=== PATIENT | male | born 1960 | race Hispanic/Latino ===

== ENCOUNTER 2018-07-18 00:27 | Emergency (ER) | payer MEDICAID ==
[2018-07-18 00:37] VITALS: BP 158/99
[2018-07-18] MEDS ORDERED: ULTRAM PO ONE (03:41)
--- NOTE | 2018-07-18 04:51 | Emergency Department Report ---
ED General Adult HPI - General Chief complaint: Extremity Injury, Lower Stated complaint: INFECTION IN BOTH LEGS Time Seen by Provider: 07/18/18 03:41 Source: patient Mode of arrival: Ambulatory Limitations: No Limitations - History of Present Illness Initial comments: Patient is a 58-year-old white male who presents for bilateral O [place] A pain states he had a soreness right leg raise Grasser became infected bilateral lower extremity pain is chronic or 5 years there's no edema no pitting edema no numbness or tingling patient is able to baseline without gait disturbance there is no drainage Onset/Timin -: days(s) Radiation: extremity Severity scale (0 -10): 7 Quality: aching, other (itching ) Consistency: constant Improves with: rest Worsens with: movement, other (prolonged standing walking ) Associated Symptoms: denies other symptoms Treatments Prior to Arrival: none - Related Data Previous Rx's Medication Instructions Recorded Last Taken Type Ibuprofen [Motrin 800 MG tab] 800 mg PO Q8HR PRN #30 tablet 07/18/18 Unknown Rx cephALEXin [Keflex] 500 mg PO Q8HR 10 Days #30 cap 07/18/18 Unknown Rx Allergies Allergy/AdvReac Type Severity Reaction Status Date / Time No Known Allergies Allergy Unverified 07/18/18 00:30 ED Review of Systems ROS: Stated complaint: INFECTION IN BOTH LEGS Other details as noted in HPI Constitutional: denies: chills, fever Eyes: denies: eye pain, eye discharge, vision change ENT: denies: ear pain, throat pain Respiratory: denies: cough, shortness of breath, wheezing Cardiovascular: denies: chest pain, palpitations Endocrine: no symptoms reported Gastrointestinal: denies: abdominal pain, nausea, diarrhea Genitourinary: denies: urgency, dysuria Musculoskeletal: denies: back pain, joint swelling, arthralgia Skin: pruritus, other (erythema Right LE ). denies: rash, lesions Neurological: denies: headache, weakness, paresthesias Psychiatric: denies: anxiety, depression Hematological/Lymphatic: denies: easy bleeding, easy bruising ED Past Medical Hx - Past Medical History Previous Medical History?: Yes Hx Hypertension: Yes - Surgical History Past Surgical History?: Yes Additional Surgical History: Left leg with titanium rods, plates and screws from Forklift accident, Hernia - Social History Smoking Status: Former Smoker Substance Use Type: None - Medications Home Medications: Home Medications Medication Instructions Recorded Confirmed Last Taken Type Ibuprofen [Motrin 800 MG tab] 800 mg PO Q8HR PRN #30 tablet 07/18/18 Unknown Rx cephALEXin [Keflex] 500 mg PO Q8HR 10 Days #30 cap 07/18/18 Unknown Rx ED Physical Exam - General Limitations: No Limitations General appearance: alert, in no apparent distress - Head Head exam: Present: atraumatic, normocephalic - Eye Eye exam: Present: normal appearance, PERRL, EOMI Pupils: Present: normal accommodation - ENT ENT exam: Present: mucous membranes moist - Neck Neck exam: Present: normal inspection - Respiratory Respiratory exam: Present: normal lung sounds bilaterally. Absent: respiratory distress, wheezes, stridor, chest wall tenderness - Cardiovascular Cardiovascular Exam: Present: regular rate, normal rhythm, normal heart sounds. Absent: systolic murmur, diastolic murmur, rubs, gallop - GI/Abdominal GI/Abdominal exam: Present: soft, normal bowel sounds. Absent: tenderness, bruit, hernia - Rectal Rectal exam: Present: deferred - Extremities Exam Extremities exam: Present: normal inspection, full ROM, normal capillary refill. Absent: tenderness, pedal edema, joint swelling, calf tenderness - Expanded Lower Extremity Exam Right Lower Leg exam: Present: tenderness, swelling (anterior tib fib mild eythema no drainage no fever), erythema. Absent: abrasion, laceration, ecchymosis, deformity, crepidus, dislocation, palpable cord, Sherin's sign Ankle exam: Present: full ROM, tenderness Foot/Toe exam: Present: full ROM, tenderness Neuro vascular tendon exam: Absent: pulse deficit, motor deficit, sensory deficit, tendon deficit Gait: Positive: observed and normal - Back Exam Back exam: Present: normal inspection, full ROM. Absent: tenderness, CVA tenderness (R), CVA tenderness (L), muscle spasm, paraspinal tenderness, rash noted - Neurological Exam Neurological exam: Present: alert, oriented X3, CN II-XII intact, normal gait, reflexes normal. Absent: motor sensory deficit - Psychiatric Psychiatric exam: Present: normal affect, normal mood - Skin Skin exam: Present: warm, dry, intact, normal color. Absent: rash ED Course Vital Signs 07/18/18 00:35 Temperature 97.7 F Pulse Rate 96 H Respiratory 20 Rate Blood Pressure 158/99 O2 Sat by Pulse 98 Oximetry ED Medical Decision Making - Medical Decision Making this is cellulitis right le plan abx nsaids, follow up with pcp in 2-3 days for site check pt verbalized agreement and understanding of same. Critical care attestation.: If time is entered above; I have spent that time in minutes in the direct care of this critically ill patient, excluding procedure time. ED Disposition Clinical Impression: Cellulitis, leg Qualifiers: Laterality: unspecified laterality Qualified Code(s): L03.119 - Cellulitis of unspecified part of limb Disposition: DC-01 TO HOME OR SELFCARE Is pt being admited?: No Does the pt Need Aspirin: No Condition: Stable Instructions: Cellulitis (ED) Prescriptions: cephALEXin [Keflex] 500 mg PO Q8HR 10 Days #30 cap Ibuprofen [Motrin 800 MG tab] 800 mg PO Q8HR PRN #30 tablet PRN Reason: pain Referrals: [facility] [Outside] - 3-5 Days Forms: Work/School Release Form(ED) Time of Disposition: 05:24
== END 2018-07-18 04:50 | disposition home or self-care (01) ==
LOC: ED 00:27
DX: L03.115 Cellulitis of right lower limb (principal); L03.116 Cellulitis of left lower limb; I10 Essential (primary) hypertension; Z87.891 Personal history of nicotine dependence
CPT/HCPCS: 99282

== ENCOUNTER 2018-11-15 01:05 | Emergency (ER) | payer MEDICAID ==
[2018-11-15 01:56] VITALS: BP 141/94
[2018-11-15 03:07] LABS: Basophils # (Auto) 0.1 K/mm3 (0.0-0.1); Basophils % (Auto) 0.9 % (0.0-1.8); Eosinophils # (Auto) 0.3 K/mm3 (0.0-0.4); Eosinophils % (Auto) 2.8 % (0.0-4.3); Hemoglobin 14.2 gm/dl (11.8-15.2); Lymphocytes # (Auto) 1.2 K/mm3 (1.2-5.4); Lymphocytes % (Auto) 12.9 % (13.4-35.0); Mean Corpuscular HGB Conc 34 % (32-34); Mean Corpuscular Volume 90 fl (84-94); Monocytes # (Auto) 1.1 K/mm3 (0.0-0.8); Monocytes % (Auto) 11.1 % (0.0-7.3); Platelet Count 279 K/mm3 (140-440); Red Blood Count 4.66 M/mm3 (3.65-5.03); Red Cell Distribution Width 13.4 % (13.2-15.2)
[2018-11-15 03:10] LABS: Bilirubin,Urine NEG (Negative); Blood,Urine SM (Negative); Color,Urine Amber (Yellow); Hyaline Casts,Urine 5 /LPF; Mucus,Urine 1+ /HPF
[2018-11-15 03:11] LABS: WBC,Urine > 182.0 /HPF (0.0-6.0)
[2018-11-15 03:29] LABS: BUN/Creatinine Ratio 23; Blood Urea Nitrogen 27 mg/dL (9-20); Hemolysis Index 8
--- NOTE | 2018-11-15 04:49 | Event Note ---
ED Screening Note Date of service: 11/15/18 Time: 04:40 ED Screening Note: This 58-year-old male presents to the emergency room reported that he has history of kidney stone and he is having flank pain 4 days and had some blood in his urine. Pain at present is 1/10. Denies any nausea or vomiting or fever or chills. This initial assessment/diagnostic orders/clinical plan/treatment(s) is/are subject to change based on patients health status, clinical progression and re- assessment by fellow clinical providers in the ED. Further treatment and workup at subsequent clinical providers discretion. Patient/guardian urged not to elope from the ED as their condition may be serious if not clinically assessed and managed. Initial orders include: Urinalysis, CBC and chemistry. Patient urinalysis positive for blood and urinary tract infection. He has a history of kidney stone and I will go ahead and order CT scan of the abdomen and pelvis without contrast looking for stone.
--- NOTE | 2018-11-15 05:46 | Cat Scan Report ---
CT abdomen pelvis wo con INDICATION: Bilateral flank pain, hematuria, UTI. TECHNIQUE: All CT scans at this location are performed using the following dose modulation technique: Automated exposure control. Helical slices were obtained through the abdomen and pelvis. No contrast is adminis tered. COMPARISON: None available. FINDINGS: Abdomen: Lung bases are clear. The liver, spleen, pancreas, and adrenal glands are unremarkable. Ther e are no renal or ureteral calculi. There is no hydronephrosis. There is a cyst in the mid right kidn ey. Pelvis: There is an inguinal hernia which contains contains a loop of the transverse colon. There is no obstruction. There is no free air. On review of bone windows, no acute osseous abnormalities are seen. IMPRESSION: 1. There is a large right inguinal hernia which contains a portion of the transverse colon. There is no obstruction. There are no renal or ureteral calculi. There is no hydronephrosis. Signer Name: Omar Valdes MD Signed: 11/15/2018 5:42 AM Workstation Name: [id number]
[2018-11-15] MEDS ORDERED: ROCEPHIN IM ONE (07:36)
[2018-11-15] MEDS ORDERED: XYLOCAINE 1% MPF 5 mL INFILTRATI ONE (07:36)
[2018-11-15] MEDS ORDERED: ZITHROMAX PO ONE (07:36)
--- NOTE | 2018-11-15 07:43 | Emergency Department Report ---
ED Male HPI - General Chief complaint: Abdominal Pain Stated complaint: POSSIBLE KIDNEY INFECTION Time Seen by Provider: 11/15/18 04:45 Source: patient Mode of arrival: Ambulatory Limitations: No Limitations - History of Present Illness Initial comments: This is a 58-year-old male nontoxic, well nourished in appearance, no acute signs of distress presents to the ED with c/o of bilateral flank pain x4 days. Patient denies any nausea vomiting. Patient describes flank pain as cramping and aching with level of 3/10 diffuse. Patient denies chest pain, short of breath, fever, chills, headache, stiff neck, numbness or tingling. Patient denies any diarrhea or constipation. patient denies any urinary symptoms. Patient denies any recent travels. Patient denies any allergies. history of renal stones. MD Complaint: other (bilateral flank pain) -: days(s) (4) Radiation: none Severity: mild Severity scale (0 -10): 8 Quality: aching Consistency: constant Improves with: none Worsens with: none denies other symptoms. denies: discharge, swelling, mass, rash, urinary retention, blood in urine, dysuria, fever, nausea/vomiting, incontinence - Related Data Previous Rx's Medication Instructions Recorded Last Taken Type Ibuprofen [Motrin 800 MG tab] 800 mg PO Q8HR PRN #30 tablet 07/18/18 Unknown Rx cephALEXin [Keflex] 500 mg PO Q8HR 10 Days #30 cap 07/18/18 Unknown Rx Acetaminophen/Codeine [Tylenol 1 tab PO Q6H PRN #12 tab 11/15/18 Unknown Rx /Codeine # 3 tab] Sulfamethoxazole/Trimethoprim 1 each PO BID #20 tablet 11/15/18 Unknown Rx [Bactrim DS TAB] Allergies Allergy/AdvReac Type Severity Reaction Status Date / Time No Known Allergies Allergy Unverified 07/18/18 00:30 ED Review of Systems ROS: Stated complaint: POSSIBLE KIDNEY INFECTION Other details as noted in HPI Constitutional: denies: chills, fever Eyes: denies: eye pain, eye discharge, vision change ENT: denies: ear pain, throat pain Respiratory: denies: cough, shortness of breath, wheezing Cardiovascular: denies: chest pain, palpitations Endocrine: no symptoms reported Gastrointestinal: denies: abdominal pain, nausea, diarrhea Genitourinary: denies: urgency, dysuria Musculoskeletal: denies: back pain, joint swelling, arthralgia Skin: denies: rash, lesions Neurological: denies: headache, weakness, paresthesias Psychiatric: denies: anxiety, depression Hematological/Lymphatic: denies: easy bleeding, easy bruising ED Past Medical Hx - Past Medical History Previous Medical History?: Yes Hx Hypertension: Yes Hx Kidney Stones: Yes Additional medical history: PVD - Surgical History Past Surgical History?: Yes Additional Surgical History: Left leg with titanium rods, plates and screws from Forklift accident, Hernia - Social History Smoking Status: Former Smoker Substance Use Type: None - Medications Home Medications: Home Medications Medication Instructions Recorded Confirmed Last Taken Type Ibuprofen [Motrin 800 MG tab] 800 mg PO Q8HR PRN #30 tablet 07/18/18 Unknown Rx cephALEXin [Keflex] 500 mg PO Q8HR 10 Days #30 cap 07/18/18 Unknown Rx Acetaminophen/Codeine [Tylenol 1 tab PO Q6H PRN #12 tab 11/15/18 Unknown Rx /Codeine # 3 tab] Sulfamethoxazole/Trimethoprim 1 each PO BID #20 tablet 11/15/18 Unknown Rx [Bactrim DS TAB] ED Physical Exam - General Limitations: No Limitations General appearance: alert, in no apparent distress - Head Head exam: Present: atraumatic, normocephalic - Neck Neck exam: Present: normal inspection, full ROM. Absent: tenderness, meningismus, lymphadenopathy - Respiratory Respiratory exam: Present: normal lung sounds bilaterally. Absent: respiratory distress, wheezes, rales, rhonchi, stridor, chest wall tenderness, accessory muscle use, decreased breath sounds, prolonged expiratory - Cardiovascular Cardiovascular Exam: Present: regular rate, normal rhythm, normal heart sounds. Absent: irregular rhythm, systolic murmur, diastolic murmur, rubs, gallop - GI/Abdominal GI/Abdominal exam: Present: soft, normal bowel sounds. Absent: distended, tenderness, guarding, rebound, rigid, diminished bowel sounds - Extremities Exam Extremities exam: Present: normal inspection, full ROM - Back Exam Back exam: Present: normal inspection, full ROM. Absent: tenderness, CVA tenderness (R), CVA tenderness (L), muscle spasm, paraspinal tenderness, vertebral tenderness, rash noted - Neurological Exam Neurological exam: Present: alert, oriented X3, normal gait - Psychiatric Psychiatric exam: Present: normal affect, normal mood - Skin Skin exam: Present: warm, dry, intact, normal color. Absent: rash ED Course Vital Signs 11/15/18 01:48 Temperature 98.5 F Pulse Rate 107 H Respiratory 16 Rate Blood Pressure 141/94 O2 Sat by Pulse 98 Oximetry - Reevaluation(s) Reevaluation #1: 11/15/18 07:45 Patient is speaking in full sentences with no signs of distress noted. ED Medical Decision Making - Lab Data Result diagrams: 11/15/18 02:55 11/15/18 02:55 - Medical Decision Making This is a 58-year-old male that presents with UTI. Patient is stable and was examined by me. UA obtained. Patient does not have any CVA tenderness. No signs or symptoms of pyelonephritis. Patient received Rocephin 1G and 1G azith in the ED. Labs are unremarkable. CT of abdomen obtained with no hydro or renal stones. Patient is discharged with Bactrim. Patient was instructed to Follow-up with a primary care doctor in 3-5 days or if symptoms worsen and continue return to emergency room as soon as possible. At time of discharge, the patient does not seem toxic or ill in appearance. No acute signs of distress noted. Patient agrees to discharge treatment plan of care. No further questions noted by the patient. Critical care attestation.: If time is entered above; I have spent that time in minutes in the direct care of this critically ill patient, excluding procedure time. ED Disposition Clinical Impression: UTI (urinary tract infection) Qualifiers: Urinary tract infection type: acute cystitis Hematuria presence: with hematuria Qualified Code(s): N30.01 - Acute cystitis with hematuria Disposition: TO HOME OR SELFCARE Is pt being admited?: No Does the pt Need Aspirin: No Condition: Stable Instructions: Urinary Tract Infection in Men (ED) Additional Instructions: Follow-up with a primary care doctor in 3-5 days or if symptoms worsen and continue return to emergency room as soon as possible. Prescriptions: Sulfamethoxazole/Trimethoprim [Bactrim DS TAB] 1 each PO BID #20 tablet Acetaminophen/Codeine [Tylenol /Codeine # 3 tab] 1 tab PO Q6H PRN #12 tab PRN Reason: Pain , Severe (7-10) Referrals: PRIMARY CARE, [Primary Care Provider] - 3-5 Days JENNIFER ACKERMAN MD [Staff Physician] - 3-5 Days [facility] [Outside] - 3-5 Days [facility] [Outside] - 3-5 Days Forms: Work/School Release Form(ED)
== END 2018-11-15 08:20 | disposition home or self-care (01) ==
LOC: ED 01:05
DX: N39.0 Urinary tract infection, site not specified (principal); I10 Essential (primary) hypertension; Z79.1 Long term (current) use of non-steroidal anti-inflammatories (NSAID); Z79.899 Other long term (current) drug therapy; Z87.442 Personal history of urinary calculi; Z87.891 Personal history of nicotine dependence
CPT/HCPCS: 36415; 74176; 80048; 81001; 85025; 96372; 99284; J0696

== ENCOUNTER 2019-04-16 11:29 | Inpatient (IN) | payer MEDICAID ==
--- NOTE | 2019-04-16 11:49 | Event Note ---
ED Screening Note ED Screening Note: 58 yo male presents with vomiting and diarrhea for 2 days. This initial assessment/diagnostic orders/clinical plan/treatment(s) is/are subject to change based on patients health status, clinical progression and re- assessment by fellow clinical providers in the ED. Further treatment and workup at subsequent clinical providers discretion. Patient/guardian urged not to elope from the ED as their condition may be serious if not clinically assessed and managed. Initial orders include: labs
[2019-04-16 12:56] LABS: Basophils % (Auto) 0.3 % (0.0-1.8); Eosinophils % (Auto) 0.5 % (0.0-4.3); Hematocrit 50.6 % (35.5-45.6); Hemoglobin 17.4 gm/dl (11.8-15.2); Lymphocytes # (Auto) 0.8 K/mm3 (1.2-5.4); Lymphocytes % (Auto) 12.2 % (13.4-35.0); Mean Corpuscular HGB Conc 34 % (32-34); Mean Corpuscular Volume 90 fl (84-94); Monocytes # (Auto) 0.8 K/mm3 (0.0-0.8); Monocytes % (Auto) 12.9 % (0.0-7.3); Platelet Count 266 K/mm3 (140-440); Red Blood Count 5.64 M/mm3 (3.65-5.03)
[2019-04-16 13:16] LABS: Alanine Aminotransferase 12 units/L (7-56); Albumin 4.3 g/dL (3.9-5); BUN/Creatinine Ratio 17; Blood Urea Nitrogen 15 mg/dL (9-20); Calcium 9.5 mg/dL (8.4-10.2); Hemolysis Index 42
[2019-04-16] MEDS ORDERED: ONDANSETRON 4 MG/2 ML INJ IV ONE (16:18)
[2019-04-16] MEDS ORDERED: SODIUM CHLORIDE 0.9% 1000 ML 1,000 ML IV ONE ×2 (16:18→19:27)
[2019-04-16] MEDS ORDERED: PANTOPRAZOLE 40 MG INJ IV ONE (16:35)
--- NOTE | 2019-04-16 16:35 | Emergency Department Report ---
<HERIBERTO LOBO - Last Filed: 04/16/19 19:09> ED Abdominal Pain HPI - General Chief Complaint: Nausea/Vomiting/Diarrhea Stated Complaint: N/V Time Seen by Provider: 04/16/19 15:49 Source: patient, EMS Mode of arrival: Wheelchair Limitations: No Limitations - History of Present Illness Initial Comments: 58-year-old male with history of hypertension presents with complaints of nausea, vomiting, and lower abdominal pain x2 days. He admits to vomit appearing very dark and denies this being food intake. He denies any bright red blood in his emesis. Patient states he has had a chronic very large groin hernia for the past 20 years. He admits to hernia surgery prior to the development of this hernia many years ago. He also reports dysuria and diarrhea, but denies any hematochezia/melena or hematuria. He rates his pain as a 5/10 in severity. Patient also denies any history of PUD or heavy alcohol intake. MD Complaint: abdominal pain - Related Data Home Medications Medication Instructions Recorded Confirmed Last Taken No Known Home Medications [No 04/16/19 04/16/19 Unknown Reported Home Medications] Allergies Allergy/AdvReac Type Severity Reaction Status Date / Time No Known Allergies Allergy Unverified 07/18/18 00:30 ED Review of Systems Constitutional: denies: chills, diaphoresis, fever, malaise ENT: denies: throat pain Respiratory: denies: cough, shortness of breath Cardiovascular: denies: chest pain, edema, syncope Gastrointestinal: abdominal pain, nausea, vomiting, diarrhea. denies: constipation, hematemesis, melena, hematochezia Genitourinary: dysuria. denies: urgency, frequency, hematuria, discharge, testicular pain Skin: denies: rash, lesions Neurological: denies: headache, numbness, paresthesias ED Past Medical Hx - Past Medical History Previous Medical History?: Yes Hx Hypertension: Yes Hx Kidney Stones: Yes Additional medical history: PVD - Surgical History Past Surgical History?: Yes Additional Surgical History: Left leg with titanium rods, plates and screws from Forklift accident, Hernia - Social History Smoking Status: Never Smoker Substance Use Type: None - Medications Home Medications: Home Medications Medication Instructions Recorded Confirmed Last Taken Type No Known Home Medications [No 04/16/19 04/16/19 Unknown History Reported Home Medications] ED Physical Exam - General Limitations: No Limitations General appearance: alert - Head Head exam: Present: atraumatic, normocephalic - Eye Eye exam: Present: normal appearance. Absent: scleral icterus - ENT ENT exam: Present: mucous membranes moist - Neck Neck exam: Present: normal inspection - Respiratory Respiratory exam: Present: normal lung sounds bilaterally. Absent: respiratory distress - Cardiovascular Cardiovascular Exam: Present: regular rate, normal rhythm. Absent: systolic murmur, diastolic murmur, rubs, gallop - GI/Abdominal GI/Abdominal exam: Present: distended (moderately), tenderness, hernia (Large inguinal hernial mass noted without overlying erythema; area is mild to m oderately tender to palpation). Absent: guarding, rebound, rigid - Extremities Exam Extremities exam: Present: normal inspection - Back Exam Back exam: Absent: CVA tenderness (R), CVA tenderness (L) - Neurological Exam Neurological exam: Present: alert, oriented X3 - Psychiatric Psychiatric exam: Present: normal affect, normal mood - Skin Skin exam: Present: warm, dry, intact, normal color. Absent: rash, cyanosis, diaphoretic, erythema ED Medical Decision Making - Lab Data Result diagrams: 04/16/19 12:32 04/16/19 12:32 Lab Results 04/16/19 04/16/19 04/16/19 Range/Units 12:32 12:32 17:13 WBC 6.3 (4.5-11.0) K/mm3 RBC 5.64 H (3.65-5.03) M/mm3 Hgb 17.4 H (11.8-15.2) gm/dl Hct 50.6 H (35.5-45.6) % MCV 90 (84-94) fl MCH 31 (28-32) pg MCHC 34 (32-34) % RDW 14.0 (13.2-15.2) % Plt Count 266 (140-440) K/mm3 Lymph % (Auto) 12.2 L (13.4-35.0) % Bell % (Auto) 12.9 H (0.0-7.3) % Eos % (Auto) 0.5 (0.0-4.3) % Baso % (Auto) 0.3 (0.0-1.8) % Lymph # 0.8 L (1.2-5.4) K/mm3 Bell # 0.8 (0.0-0.8) K/mm3 Eos # 0.0 (0.0-0.4) K/mm3 Baso # 0.0 (0.0-0.1) K/mm3 Seg Neutrophils % 74.1 H (40.0-70.0) % Seg Neutrophils # 4.7 (1.8-7.7) K/mm3 PT 14.9 (12.2-14.9) Sec. INR 1.15 H (0.87-1.13) APTT 32.7 (24.2-36.6) Sec. Sodium 138 (137-145) mmol/L Potassium 3.8 (3.6-5.0) mmol/L Chloride 99.8 (98-107) mmol/L Carbon Dioxide 22 (22-30) mmol/L Anion Gap 20 mmol/L BUN 15 (9-20) mg/dL Creatinine 0.9 (0.8-1.5) mg/dL Estimated GFR > 60 ml/min BUN/Creatinine Ratio 17 % Glucose 129 H (75-100) mg/dL Lactic Acid (0.7-2.0) mmol/L Calcium 9.5 (8.4-10.2) mg/dL Total Bilirubin 0.70 (0.1-1.2) mg/dL AST 16 (5-40) units/L ALT 12 (7-56) units/L Alkaline Phosphatase 108 (35-129) units/L Total Protein 7.4 (6.3-8.2) g/dL Albumin 4.3 (3.9-5) g/dL Albumin/Globulin Ratio 1.4 % Lipase 18 (13-60) units/L Urine Color (Yellow) Urine Turbidity (Clear) Urine pH (5.0-7.0) Ur Specific [place] (1.003-1.030) Urine Protein (Negative) mg/dL Urine Glucose (UA) (Negative) mg/dL Urine Ketones (Negative) mg/dL Urine Blood (Negative) Urine Nitrite (Negative) Urine Bilirubin (Negative) Urine Urobilinogen (<2.0) mg/dL Ur Leukocyte Esterase (Negative) Urine WBC (Auto) (0.0-6.0) /HPF Urine RBC (Auto) (0.0-6.0) /HPF U Epithel Cells (Auto) (0-13.0) /HPF Urine Mucus /HPF 04/16/19 04/16/19 04/16/19 Range/Units 18:29 18:29 18:33 WBC (4.5-11.0) K/mm3 RBC (3.65-5.03) M/mm3 Hgb (11.8-15.2) gm/dl Hct (35.5-45.6) % MCV (84-94) fl MCH (28-32) pg MCHC (32-34) % RDW (13.2-15.2) % Plt Count (140-440) K/mm3 Lymph % (Auto) (13.4-35.0) % Bell % (Auto) (0.0-7.3) % Eos % (Auto) (0.0-4.3) % Baso % (Auto) (0.0-1.8) % Lymph # (1.2-5.4) K/mm3 Bell # (0.0-0.8) K/mm3 Eos # (0.0-0.4) K/mm3 Baso # (0.0-0.1) K/mm3 Seg Neutrophils % (40.0-70.0) % Seg Neutrophils # (1.8-7.7) K/mm3 PT 14.8 (12.2-14.9) Sec. INR 1.14 H (0.87-1.13) APTT 29.3 (24.2-36.6) Sec. Sodium (137-145) mmol/L Potassium (3.6-5.0) mmol/L Chloride (98-107) mmol/L Carbon Dioxide (22-30) mmol/L Anion Gap mmol/L BUN (9-20) mg/dL Creatinine (0.8-1.5) mg/dL Estimated GFR ml/min BUN/Creatinine Ratio % Glucose (75-100) mg/dL Lactic Acid 0.60 L (0.7-2.0) mmol/L Calcium (8.4-10.2) mg/dL Total Bilirubin (0.1-1.2) mg/dL AST (5-40) units/L ALT (7-56) units/L Alkaline Phosphatase (35-129) units/L Total Protein (6.3-8.2) g/dL Albumin (3.9-5) g/dL Albumin/Globulin Ratio % Lipase (13-60) units/L Urine Color Yellow (Yellow) Urine Turbidity Clear (Clear) Urine pH 5.0 (5.0-7.0) Ur Specific [place] 1.060 H (1.003-1.030) Urine Protein <15 mg/dl (Negative) mg/dL Urine Glucose (UA) Neg (Negative) mg/dL Urine Ketones Tr (Negative) mg/dL Urine Blood Mod (Negative) Urine Nitrite Neg (Negative) Urine Bilirubin Neg (Negative) Urine Urobilinogen < 2.0 (<2.0) mg/dL Ur Leukocyte Esterase Neg (Negative) Urine WBC (Auto) 1.0 (0.0-6.0) /HPF Urine RBC (Auto) 2.0 (0.0-6.0) /HPF U Epithel Cells (Auto) 1.0 (0-13.0) /HPF Urine Mucus Few /HPF - Medical Decision Making 58-year-old male with history of hypertension presents with complaints of nausea, vomiting, and lower abdominal pain x2 days. Significantly large left inguinal hernia noted on exam-nonreducible. CBC and CMP are normal. No further vomiting noted while here in ED, however pt has had 2 loos bowel movements. Pt is afebrile and nontachycardic. Discussed pt with GI, Dr. Dyer-recommends trial of reduction while pt in Trendelenburg Reduction of hernia attempted by Dr. Domínugez unsuccessfully. Pt handed off to Dr. Domínguez for further management and admission. ED Disposition Clinical Impression: Inguinal hernia with bowel obstruction Abdominal pain Qualifiers: Abdominal location: lower abdomen, unspecified Qualified Code(s): R10.30 - Lower abdominal pain, unspecified Disposition: DC-09 OP ADMIT IP TO THIS HOSP Is pt being admited?: Yes Condition: Critical <LEXY DOMÍNGUEZ III - Last Filed: 04/16/19 21:10> ED Review of Systems ROS: Stated complaint: N/V Other details as noted in HPI Constitutional: denies: chills, fever Eyes: denies: eye pain, eye discharge, vision change ENT: denies: ear pain, throat pain Respiratory: denies: cough, shortness of breath, wheezing Cardiovascular: denies: chest pain, palpitations Endocrine: no symptoms reported Gastrointestinal: as per HPI Genitourinary: denies: urgency, dysuria Musculoskeletal: denies: back pain, joint swelling, arthralgia Skin: denies: rash, lesions Neurological: denies: headache, weakness, paresthesias Psychiatric: denies: anxiety, depression Hematological/Lymphatic: denies: easy bleeding, easy bruising ED Past Medical Hx - Past Medical History Previous Medical History?: Yes Hx Hypertension: Yes Hx Kidney Stones: Yes - Surgical History Past Surgical History?: Yes - Family History Family history: no significant - Social History Smoking Status: Never Smoker Substance Use Type: None ED Physical Exam - General General appearance: alert, in no apparent distress - Head Head exam: Present: atraumatic, normocephalic - Eye Eye exam: Present: normal appearance - ENT ENT exam: Present: mucous membranes moist - Neck Neck exam: Present: normal inspection - Respiratory Respiratory exam: Present: normal lung sounds bilaterally. Absent: respiratory distress - Cardiovascular Cardiovascular Exam: Present: regular rate, normal rhythm. Absent: systolic murmur, diastolic murmur, rubs, gallop - GI/Abdominal GI/Abdominal exam: Present: soft, distended, tenderness, normal bowel sounds, hernia - Rectal Rectal exam: Present: deferred - Extremities Exam Extremities exam: Present: normal inspection - Back Exam Back exam: Present: normal inspection - Neurological Exam Neurological exam: Present: alert, oriented X3 - Psychiatric Psychiatric exam: Present: normal affect, normal mood - Skin Skin exam: Present: warm, dry, intact, normal color. Absent: rash ED Course Vital Signs 04/16/19 04/16/19 11:38 18:58 Temperature 98.6 F Pulse Rate 98 H Respiratory 16 20 Rate Blood Pressure 153/106 O2 Sat by Pulse 97 Oximetry - Reevaluation(s) Reevaluation #1: I have examined the patient. I received report from our midlevel. I will assume care of the patient. I will consult general surgery again to discuss the case with Dr. Dyer. 04/16/19 1850 Reevaluation #2: Patient placed in Trendelenburg and I was able to reduce approximately 30%. Patient be left in Trendelenburg and I will attempt again 04/16/19 19:30 Reevaluation #3: Unable to completely reduce the large inguinal hernia the patient has. The general surgeon will be updated. 04/16/19 21:01 - Consultations Consultation #1: I discussed case with Dr. Dyer. Dr. Dyer recommends putting the patient in Trendelenburg and applying some force to the hernia and trying to reduce it and then admitting the patient to the hospitalist service. 04/16/19 19:02 Dr. Dyer updated with the situation at the hernia is not reducible. Dr. Dyer states he is coming to see the patient. 04/16/19 21:09 Consultation #2: Hospitalist consulted for admission. Hospitalist admit patient. Bridge orders placed. 04/16/19 19:10 ED Medical Decision Making - Lab Data Result diagrams: 04/16/19 12:32 04/16/19 12:32 - Radiology Data Radiology results: report reviewed CT abdomen pelvis w con INDICATION / CLINICAL INFORMATION: lower abd pain, black emesis, significant hernia. TECHNIQUE: Axial CT imaging of abdomen and pelvis was obtained with IV contrast. Coronal and sagittal reformatted imaging obtained and reviewed. All CT scans at this location are performed using CT dose reduction for ALARA by means of automated exposure control. COMPARISON: Prior CT abdomen/pelvis, 11/15/2018 FINDINGS: CT abdomen with contrast demonstrates grossly normal appearance of the liver, spleen, pancreas, kidneys, and adrenal glands. Gallbladder is grossly unremarkable. There is no significant biliary dilatation. Small amount of free fluid is present surrounding the liver. CT pelvis demonstrates a very large right inguinal hernia which is incompletely visualized due to the large size of the hernia.. Within the hernia, there is ascending colon as well as several small bowel loops. I believe the cecum is within the hernia. This is causing a small bowel obstruction. There are numerous fluid-filled dilated loops of small bowel throughout the abdomen and pelvis. Visualized lung bases are clear. No significant osseous abnormality other than degenerative change. Left hip or other plasty is present. IMPRESSION: 1. Extremely large right inguinal hernia containing both small and large bowel. The hernia is definitely causing a small bowel obstruction, probably at the terminal ileum/proximal colonic level. There is small amount of free fluid noted within the upper abdomen Critical Care Time: Yes Critical care time in (mins) excluding proc time.: 35 Critical care attestation.: If time is entered above; I have spent that time in minutes in the direct care of this critically ill patient, excluding procedure time. Critical Care Time: 35 minutes ED Disposition Is pt being admited?: Yes Does the pt Need Aspirin: No Time of Disposition: 21:10
--- NOTE | 2019-04-16 18:13 | Cat Scan Report ---
CT abdomen pelvis w con INDICATION / CLINICAL INFORMATION: lower abd pain, black emesis, significant hernia. TECHNIQUE: Axial CT imaging of abdomen and pelvis was obtained with IV contrast. Coronal and sagittal reformatte d imaging obtained and reviewed. All CT scans at this location are performed using CT dose reduction for ALARA by means of automated exposure control. COMPARISON: Prior CT abdomen/pelvis, 11/15/2018 FINDINGS: CT abdomen with contrast demonstrates grossly normal appearance of the liver, spleen, pancreas, kidne ys, and adrenal glands. Gallbladder is grossly unremarkable. There is no significant biliary dilatati on. Small amount of free fluid is present surrounding the liver. CT pelvis demonstrates a very large right inguinal hernia which is incompletely visualized due to the large size of the hernia.. Within the hernia, there is ascending colon as well as several small lc l loops. I believe the cecum is within the hernia. This is causing a small bowel obstruction. There a re numerous fluid-filled dilated loops of small bowel throughout the abdomen and pelvis. Visualized lung bases are clear. No significant osseous abnormality other than degenerative change. Left hip or other plasty is presen t. IMPRESSION: 1. Extremely large right inguinal hernia containing both small and large bowel. The hernia is definit toni causing a small bowel obstruction, probably at the terminal ileum/proximal colonic level. There i s small amount of free fluid noted within the upper abdomen Signer Name: Gisell Caicedo MD Signed: 04/16/2019 6:09 PM Workstation Name: [id number]
[2019-04-16 18:26] LABS: INR 1.15 (0.87-1.13)
[2019-04-16 18:29] LABS: Partial Thromboplastin Time 32.7 Sec. (24.2-36.6)
[2019-04-16 18:50] LABS: Bilirubin,Urine NEG (Negative); Blood,Urine MOD (Negative); Color,Urine Yellow (Yellow); Mucus,Urine FEW /HPF; Protein,Urine <15 mg/dL mg/dL (Negative); Urobilinogen,Urine < 2.0 mg/dL (<2.0)
[2019-04-16 18:59] LABS: INR 1.14 (0.87-1.13); Partial Thromboplastin Time 29.3 Sec. (24.2-36.6)
[2019-04-16] MEDS ORDERED: HYDROmorphone 1 MG/1 ML INJ IV ONE ×2 (19:00→20:00)
[2019-04-16] MEDS ORDERED: SODIUM CHLORIDE 0.9% 1000 ML 1,000 ML IV SCH (19:00)
[2019-04-16] MEDS ORDERED: SODIUM CHLORIDE 0.9% 1000 ML 0 ML ONE (19:05)
[2019-04-16] MEDS ORDERED: HYDROmorphone 1 MG/1 ML INJ IV PRN (22:01)
[2019-04-16] MEDS ORDERED: ONDANSETRON 4 MG/2 ML INJ IV PRN (22:02)
[2019-04-16] MEDS ORDERED: ACETAMINOPHEN 650 MG RECT SUPP PR PRN (22:03)
[2019-04-16] MEDS ORDERED: MIDAZOLAM 5 MG/5 ML INJ MDV IV ONE ×2 (22:45→22:48)
--- NOTE | 2019-04-16 23:22 | Consultation ---
History of Present Illness Consult date: 04/16/19 Reason for consult: hernia Requesting physician: LEXY DOMÍNGUEZ III Chief complaint: vomiting and diarrhea x 3 days - History of present illness History of present illness: 58yo M with a large RIH for 20 years presented to the emergency department with a complaint of vomiting and diarrhea for [address] evaluation was done which showed herniated bowel in the right inguinal hernia sac along with what appeared to be a point of obstruction in the terminal ileum as a result of the herniation. Attempts were made by the ER staff for reduction. General surgery was consulted for an incarcerated right inguinal hernia. Patient reports that 20 years ago he had the right inguinal hernia repaired. 6 months later the hernia recurred. It has progressively been getting larger. He suffered a trauma at work which led to a prolonged hospitalization with multiple surgeries and a long recovery for a period of 3 years. During this time and afterwards, he decided not to do anything about the right inguinal hernia. For the past 8 months, it has been the current size. It used to be able to go back in. It now remains out. Over the last couple days he has had increased pain in the right inguinal region. Past History Past Medical History: hypertension (He has not been taking his medications.) Past Surgical History: hernia repair (RIH), Other (Left femur and ankle surgeries) Social history: other (occasionally uses meth). denies: smoking (stopped about 14 years ago), alcohol abuse Family history: no significant family history Medications and Allergies Allergies Allergy/AdvReac Type Severity Reaction Status Date / Time No Known Allergies Allergy Unverified 07/18/18 00:30 Home Medications Medication Instructions Recorded Confirmed Last Taken Type No Known Home Medications [No 04/16/19 04/16/19 Unknown History Reported Home Medications] Active Meds: Active Medications Acetaminophen (Tylenol) 650 mg MA Q4H PRN PRN Reason: Fever >101 Hydromorphone HCl (Dilaudid) 1 mg IV Q4H PRN PRN Reason: Pain , Severe (7-10) Sodium Chloride (Nacl 0.9% 1000 Ml) 1,000 mls @ 250 mls/hr IV ONCE ONE Stop: 04/16/19 23:26 Last Admin: 04/16/19 19:43 Dose: 250 mls/hr Documented by: Dextrose/Sodium Chloride (D5/0.45ns) 1,000 mls @ 75 mls/hr IV DIRECT TERESA Ondansetron HCl (Zofran) 4 mg IV Q4H PRN PRN Reason: Nausea And Vomiting Review of Systems - Constitutional no fever, no chills, no chronic pain - Cardiovascular no chest pain, no shortness of breath - Respiratory no cough - Gastrointestinal abdominal pain, nausea, vomiting, diarrhea, heartburn, no hematemesis, no coffee ground emesis, no BRBPR, no melena, no hematochezia - Genitourinary other (difficulty urinating due to RIH) - Muskuloskeletal no low back pain - Integumentary no rash, no pruritis, no sores, no wounds Exam Vital Signs Temp Pulse Resp BP Pulse Ox 98.6 F 98 H 16 153/106 97 04/16/19 11:38 04/16/19 11:38 04/16/19 11:38 04/16/19 11:38 04/16/19 11:38 - General physical appearance Positive: no distress, no pain, other (pleasant man. does not appear ill) - Eyes Positive: normal occular movement - Respiratory Positive: normal expansion, normal respiratory effort, clear to auscultation - Cardiovascular Rhythm: regular - Abdomen Abdomen: Present: soft. Absent: tender, distended, masses, rebound, guarding, rigid, wound Hernia: inguinal - Genitourinary Male Genitourinary: right inguinal hernia - Integumentary no rash, no growths, no abnormal pigmentation - Neurologic Neurologic: alert and oriented to time, place and person, motor strength and sensation are grossly intact - Psychiatric Psychiatric: appropriate mood/affect, intact judgment & insight, cooperative Results - Labs 04/16/19 12:32 04/16/19 12:32 Abnormal lab results 04/16/19 04/16/19 04/16/19 Range/Units 12:32 12:32 17:13 RBC 5.64 H (3.65-5.03) M/mm3 Hgb 17.4 H (11.8-15.2) gm/dl Hct 50.6 H (35.5-45.6) % Lymph % (Auto) 12.2 L (13.4-35.0) % [place] % (Auto) 12.9 H (0.0-7.3) % Lymph # 0.8 L (1.2-5.4) K/mm3 Seg Neutrophils % 74.1 H (40.0-70.0) % INR 1.15 H (0.87-1.13) Glucose 129 H (75-100) mg/dL Lactic Acid (0.7-2.0) mmol/L Ur Specific [place] (1.003-1.030) 04/16/19 04/16/19 04/16/19 Range/Units 18:29 18:29 18:33 RBC (3.65-5.03) M/mm3 Hgb (11.8-15.2) gm/dl Hct (35.5-45.6) % Lymph % (Auto) (13.4-35.0) % [place] % (Auto) (0.0-7.3) % Lymph # (1.2-5.4) K/mm3 Seg Neutrophils % (40.0-70.0) % INR 1.14 H (0.87-1.13) Glucose (75-100) mg/dL Lactic Acid 0.60 L (0.7-2.0) mmol/L Ur Specific [place] 1.060 H (1.003-1.030) Diabetes panel 04/16/19 Range/Units 12:32 Sodium 138 (137-145) mmol/L Potassium 3.8 (3.6-5.0) mmol/L Chloride 99.8 (98-107) mmol/L Carbon Dioxide 22 (22-30) mmol/L BUN 15 (9-20) mg/dL Creatinine 0.9 (0.8-1.5) mg/dL Glucose 129 H (75-100) mg/dL Calcium 9.5 (8.4-10.2) mg/dL AST 16 (5-40) units/L ALT 12 (7-56) units/L Alkaline Phosphatase 108 (35-129) units/L Total Protein 7.4 (6.3-8.2) g/dL Albumin 4.3 (3.9-5) g/dL Calcium panel 04/16/19 Range/Units 12:32 Calcium 9.5 (8.4-10.2) mg/dL Albumin 4.3 (3.9-5) g/dL Pituitary panel 04/16/19 Range/Units 12:32 Sodium 138 (137-145) mmol/L Potassium 3.8 (3.6-5.0) mmol/L Chloride 99.8 (98-107) mmol/L Carbon Dioxide 22 (22-30) mmol/L BUN 15 (9-20) mg/dL Creatinine 0.9 (0.8-1.5) mg/dL Glucose 129 H (75-100) mg/dL Calcium 9.5 (8.4-10.2) mg/dL Adrenal panel 04/16/19 Range/Units 12:32 Sodium 138 (137-145) mmol/L Potassium 3.8 (3.6-5.0) mmol/L Chloride 99.8 (98-107) mmol/L Carbon Dioxide 22 (22-30) mmol/L BUN 15 (9-20) mg/dL Creatinine 0.9 (0.8-1.5) mg/dL Glucose 129 H (75-100) mg/dL Calcium 9.5 (8.4-10.2) mg/dL Total Bilirubin 0.70 (0.1-1.2) mg/dL AST 16 (5-40) units/L ALT 12 (7-56) units/L Alkaline Phosphatase 108 (35-129) units/L Total Protein 7.4 (6.3-8.2) g/dL Albumin 4.3 (3.9-5) g/dL - Imaging CT scan - abdomen: report reviewed, image reviewed CT scan - pelvis: report reviewed, image reviewed Assessment and Plan - Patient Problems (1) Inguinal hernia with bowel obstruction Current Visit: Yes Status: Acute Plan to address problem: Recurrent right inguinal hernia with obstruction. I explained in detail why it was important for us to try to get the hernia reduced. If we are unsuccessful, then will have to proceed to surgery tonight which will prevent me from using the technique that I think will give him the best results. If we are able to reduce the hernia then we can admit him and schedule him to have a robotic repair. With his prior open repair history and with such a large hernia, a [place] repair with the robot would allow for a large dissection and placement of large mesh to minimize his chance of recurrence. Patient understood and agreed to another reduction attempt. A considerable amount of time was spent trying to manipulate the hernia contents back into position. [place] through our attempt, he noted significant improvement. He was now able to urinate much easier. The scrotum was much softer compared to when he came in. He could tell the hernia was significantly reduced. At this point with further attempts at reduction, he was having more discomfort. At this point Dr. Domínguez came and assisted with the reduction as well as gave him some sedation. We were able to reduce more at this point. We are left with was a hernia sac that was probably one third the size of what we started with. It was definitely much softer. We could feel the contents being reduced much easier. The patient felt significantly better. We could now visualize the testicles and the shaft of the penis which we were unable to before due to the significant size of the hernia. As he is clinically better and his symptoms have resolved, I think we are safe to hold off on surgery tonight. He may have a clear liquid diet tonight. If he remains in his current state, then we will plan for a robotic repair during this upcoming week. Patient was very appreciative for all the help. Dr. Domínguez and I were in agreement on the patient's status and plan. Time=90min
--- NOTE | 2019-04-17 08:01 | History and Physical Report ---
CHIEF COMPLAINT: Nausea, vomiting and diarrhea. OTHER COMPLAINT: Includes right inguinal swelling. HISTORY OF PRESENTING ILLNESS: The patient is a 58-year-old male who said he started having swelling in the right inguinal area that extended down to the scrotum, going on for about 1 week, and within the last 2 days the patient started having nausea and vomiting with lower abdominal pain. The patient stated because of the swelling in the scrotum, he was having problem urinating. There is no history of constipation; however, the patient was having abdominal pain. There is also no history of fever or chills. There is no history of hematuria. The patient said he has had problem of inguinal hernia twice in the past that got big and was taken care of, and had similar symptoms this time around and presented for evaluation. PAST MEDICAL HISTORY: Pertinent for hypertension, kidney stones, peripheral vascular disease. 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 Also, the patient has past surgical history of hernia repair. FAMILY HISTORY: There is no family history of hypertension or kidney stones. SOCIAL HISTORY: The patient does not smoke, does not drink alcohol and does not use illicit drugs. MEDICATIONS: The patient is not on any home medications. ALLERGIES: There are no known drug allergies. REVIEW OF SYSTEMS: CONSTITUTIONAL: There is no fever, no chills, no diaphoresis. HEENT: There is no headache or sore throat. CARDIOVASCULAR SYSTEM: There is no chest pain or orthopnea. RESPIRATORY SYSTEM: There is no shortness of breath or cough. GASTROINTESTINAL SYSTEM: Abdominal pain present. Nausea, vomiting and diarrhea present. Swelling in the right inguinal area present. NEUROLOGICAL SYSTEM: There is no numbness, no dizziness, no altered mental status. MUSCULOSKELETAL SYSTEM: There is no joint pain or swelling. DERMATOLOGICAL SYSTEM: There is no skin rash or itching. GENITOURINARY SYSTEM: There is no dysuria, hematuria or flank pain, but there is swelling in the scrotum. Rest of system review is normal. PHYSICAL EXAMINATION: GENERAL: At the time of exam, the patient was found to be alert, oriented x3 and not in acute distress. VITAL SIGNS: At the initial time of presentation showed temperature of 98.6 degrees Fahrenheit, pulse of 98, respirations 16, blood pressure 153/106, O2 sat of 97% on room air. HEENT: Showed pupils to be equal, round, reactive to light and accommodating. Extraocular muscles are intact. NECK: Supple with no JVD or carotid bruit. CARDIOVASCULAR SYSTEM: Showed normal first and second heart sounds with no gallops or murmurs. RESPIRATORY SYSTEM: Showed good air entry on both sides of the lungs with no abnormal breath sounds. GASTROINTESTINAL SYSTEM: Showed abdomen to be full, soft, nontender with no organomegaly or rigidity. There is swelling in the right groin area with soft, nontender, big mass extending down to the scrotal area with positive response cough reflex. NEUROLOGICAL SYSTEM: Showed no focal deficit. MUSCULOSKELETAL SYSTEM: Showed no joint swelling or tenderness. DERMATOLOGICAL SYSTEM: Showed no skin rash. GENITOURINARY SYSTEM: Shows swelling in the scrotal area, up to the right groin area. PERTINENT IMAGING STUDIES: The patient had CT of the abdomen and pelvis done that shows extremely large right inguinal hernia, containing both small and large bowel. Radiology said the hernia is definitely causing the small-bowel obstruction, probably at the terminal/proximal colonic level, with small amount of fluid noted within the upper abdomen. LABORATORY RESULTS: The patient's CBC showed normal white count with high hemoglobin of 17.4 and high hematocrit of 50.6 with CBC differential showing high monocyte count of 12.9. Coagulation studies were unremarkable. The patient's chemistry was unremarkable. Urinalysis shows urine with high specific gravity of 1.60, otherwise unremarkable. DIAGNOSIS: Right inguinal hernia with bowel obstruction. PLAN OF CARE: 1. The patient will be admitted to the medical/surgical fuentes. 2. The patient will continue surgical consult with Dr. Dyer, who has seen the patient in the Emergency Room. 3. The patient will be on IV Dilaudid 1 mg every 4 hours as needed for pain, and IV Zofran 4 mg every 4 hours as needed for nausea and vomiting. 4. The patient will be on D5 half-normal saline running at 75 mL an hour. 5. The patient will be n.p.o. until evaluated by the surgeon. 6. The patient's DVT prophylaxis will be through sequential compressive device. 7. The patient will be on Tylenol 650 mg suppository rectally every 4 hours for fever and headache. JOB# [id number] OCN/NTS
--- NOTE | 2019-04-17 09:40 | Progress Note ---
Assessment and Plan Assessment and plan: --Large right inguinal hernia[ containing small and large bowel Small bowel] with bowel obstruction, on CT abdomen Surgery evaluated the patient Able to reduce, planning robotic surgery tomorrow N.p.o. from midnight --History of recurrent right inguinal hernia with obstruction; Management per surgery, robotic surgery tomorrow --DVT prophylaxis; SCDs No pharmacologic anticoagulation in view of pending surgical procedure Plan of care reviewed with the patient and his nurse Surgery evaluation recommendations noted and appreciated History Interval history: Patient seen and examined at bedside this morning Patient's chart and other records , medications reviewed Patient was admitted with large right-sided inguinal hernia with bowel obstruction. Surgery has evaluated and reduce the contents of the hernia Patient denies any nausea vomiting Comfortable no pain Vital signs reviewed Hospitalist Physical - Constitutional Vitals: Temp Pulse Resp BP Pulse Ox 97.9 F 73 14 141/88 98 04/17/19 08:38 04/17/19 08:38 04/17/19 08:38 04/17/19 08:38 04/17/19 08:38 General appearance: Present: no acute distress, well-nourished - EENT Eyes: Present: PERRL, EOM intact - Neck Neck: Present: supple, normal ROM - Respiratory Respiratory effort: normal Respiratory: bilateral: diminished, negative: rales, rhonchi, wheezing - Cardiovascular Rhythm: regular Heart Sounds: Present: S1 & S2 - Extremities Extremities: no ischemia, No edema - Abdominal General gastrointestinal: soft, non-tender, non-distended, normal bowel sounds, hernia (Large right-sided inguinal hernia) - Integumentary Integumentary: Present: clear, warm - Psychiatric Psychiatric: appropriate mood/affect, cooperative - Neurologic Neurologic: CNII-XII intact, moves all extremities Results - Labs CBC & Chem 7: 04/16/19 12:32 04/16/19 12:32 Labs: Laboratory Last Values WBC 6.3 K/mm3 (4.5-11.0) 04/16/19 12:32 RBC 5.64 M/mm3 (3.65-5.03) H 04/16/19 12:32 Hgb 17.4 gm/dl (11.8-15.2) H 04/16/19 12:32 Hct 50.6 % (35.5-45.6) H 04/16/19 12:32 MCV 90 fl (84-94) 04/16/19 12: MCH 31 pg (28-32) 04/16/19 12: MCHC 34 % (32-34) 04/16/19 12:32 RDW 14.0 % (13.2-15.2) 04/16/19 12:32 Plt Count 266 K/mm3 (140-440) 04/16/19 12:32 Lymph % (Auto) 12.2 % (13.4-35.0) L 04/16/19 12:32 [place] % (Auto) 12.9 % (0.0-7.3) H 04/16/19 12:32 Eos % (Auto) 0.5 % (0.0-4.3) 04/16/19 12: Baso % (Auto) 0.3 % (0.0-1.8) 04/16/19 12: Lymph # 0.8 K/mm3 (1.2-5.4) L 04/16/19 12: [place] # 0.8 K/mm3 (0.0-0.8) 04/16/19 12: Eos # 0.0 K/mm3 (0.0-0.4) 04/16/19 12: Baso # 0.0 K/mm3 (0.0-0.1) 04/16/19 12: Seg Neutrophils % 74.1 % (40.0-70.0) H 04/16/19 12: Seg Neutrophils # 4.7 K/mm3 (1.8-7.7) 04/16/19 12:32 PT 14.8 Sec. (12.2-14.9) 04/16/19 18:29 INR 1.14 (0.87-1.13) H 04/16/19 18:29 APTT 29.3 Sec. (24.2-36.6) 04/16/19 18:29 Sodium 138 mmol/L (137-145) 04/16/19 12:32 Potassium 3.8 mmol/L (3.6-5.0) 04/16/19 12:32 Chloride 99.8 mmol/L (98-107) 04/16/19 12:32 Carbon Dioxide 22 mmol/L (22-30) 04/16/19 12:32 Anion Gap 20 mmol/L 04/16/19 12:32 BUN 15 mg/dL (9-20) 04/16/19 12:32 Creatinine 0.9 mg/dL (0.8-1.5) 04/16/19 12:32 Estimated GFR > 60 ml/min 04/16/19 12:32 BUN/Creatinine Ratio 17 % 04/16/19 12:32 Glucose 129 mg/dL (75-100) H 04/16/19 12:32 Lactic Acid 0.60 mmol/L (0.7-2.0) L 04/16/19 18:29 Calcium 9.5 mg/dL (8.4-10.2) 04/16/19 12:32 Total Bilirubin 0.70 mg/dL (0.1-1.2) 04/16/19 12:32 AST 16 units/L (5-40) 04/16/19 12:32 ALT 12 units/L (7-56) 04/16/19 12:32 Alkaline Phosphatase 108 units/L (35-129) 04/16/19 12:32 Total Protein 7.4 g/dL (6.3-8.2) 04/16/19 12:32 Albumin 4.3 g/dL (3.9-5) 04/16/19 12:32 Albumin/Globulin Ratio 1.4 % 04/16/19 12:32 Lipase 18 units/L (13-60) 04/16/19 12:32 Urine Color Yellow (Yellow) 04/16/19 18:33 Urine Turbidity Clear (Clear) 04/16/19 18:33 Urine pH 5.0 (5.0-7.0) 04/16/19 18:33 Ur Specific [place] 1.060 (1.003-1.030) H 04/16/19 18:33 Urine Protein <15 mg/dl mg/dL (Negative) 04/16/19 18:33 Urine Glucose (UA) Neg mg/dL (Negative) 04/16/19 18:33 Urine Ketones Tr mg/dL (Negative) 04/16/19 18:33 Urine Blood Mod (Negative) 04/16/19 18:33 Urine Nitrite Neg (Negative) 04/16/19 18:33 Urine Bilirubin Neg (Negative) 04/16/19 18: Urine Urobilinogen < 2.0 mg/dL (<2.0) 04/16/19 18:33 Ur Leukocyte Esterase Neg (Negative) 04/16/19 18:33 Urine WBC (Auto) 1.0 /HPF (0.0-6.0) 04/16/19 18:33 Urine RBC (Auto) 2.0 /HPF (0.0-6.0) 04/16/19 18:33 U Epithel Cells (Auto) 1.0 /HPF (0-13.0) 04/16/19 18:33 Urine Mucus Few /HPF 04/16/19 18:33 Active Medications - Current Medications Current Medications: Generic Name Dose Route Start Last Admin Trade Name Freq PRN Reason Stop Dose Admin Acetaminophen 650 mg 04/16/19 22:03 Tylenol ID Q4H PRN Fever >101 Hydromorphone HCl 1 mg 04/16/19 22:01 Dilaudid IV Q4H PRN Pain , Severe (7-10) Dextrose/Sodium Chloride 1,000 mls @ 75 mls/hr 04/16/19 22:00 D5/0.45ns IV DIRECT TERESA Ondansetron HCl 4 mg 04/16/19 22:02 Zofran IV Q4H PRN Nausea And Vomiting
[2019-04-17] MEDS: D5W/0.45% NACL 1,000 ML IV SCH ×2 (09:44→21:07)
--- NOTE | 2019-04-17 12:54 | Progress Note ---
Assessment and Plan - Patient Problems (1) Inguinal hernia with bowel obstruction Current Visit: Yes Status: Acute Plan to address problem: Patient is stable. His symptoms have resolved. It appears as though we have reduced enough of the hernia to relieve the obstruction. However, he is at risk at any time for re-obstruction. He has a very large, recurrent right inguinal hernia that will require extensive surgery. We had a long conversation about what our available options are. I told him that in my opinion, he would best be served by robotic repair. That would allow me to do an extensive dissection as well as put a very large piece of mesh which would hopefully minimize his risk of recurrence in the future. He understands that every time surgery is done in this area his chance of recurrence increases. However, getting time in the operating room to do it robotically may be challenging. Our best bet would be to schedule this as an outpatient. We have the option of doing it strictly laparoscopically which would increase the chances of getting it done during this admission but I do not feel that would be the optimal repair. However, if he wishes to proceed this way, then I will make the appropriate arrangements. I want to do what what he prefers. We discussed risks and benefits of doing surgery now versus later. We discussed advantages/disadvantages of robotic versus laparoscopic versus open repair. The patient wishes to have a robotic repair. I agree with this decision. We will try to do the patient as an add-on case tomorrow. He understands that we may not get time in the operating room tomorrow. If it looks as though we will not be able to do it and he is continuing to clinically do well, we will discha rge him and try to arrange for surgery as an outpatient. Procedure, risks, benefits were discussed for robotic assisted laparoscopic repair. Risks included but were not limited to infection, bleeding, pain, injury to surrounding structures, nerve damage, recurrence, seroma formation, need for further surgery in the future. All questions were answered. Consent was obtained. Of note, patient reported last night that he was experiencing numbness in the area of the hernia. I believe he is already starting to suffer some damage to the inguinal nerves from the chronic pressure from the hernia. Will advance diet as his obstruction has resolved. Orders have been placed for surgery tomorrow. Please call with questions. Time=15min Subjective Date of service: 04/17/19 Patient Reports: Positive: feels better, pain is less, tolerating liquids well, other (This is the best that he is felt in quite a while. The hernia is much softer and smaller than what it has been over the past few months. The vomiting and diarrhea that he presented with has completely resolved. He is hungry and would like to eat.) Objective Vital Signs - 12hr 04/17/19 04/17/19 04/17/19 01:13 06:22 08:05 Temperature 98.0 F 98.0 F 98.3 F Pulse Rate 91 H 78 78 Respiratory 18 17 16 Rate Blood Pressure Blood Pressure 117/75 128/82 143/87 [Left] O2 Sat by Pulse 97 99 99 Oximetry 04/17/19 08:38 Temperature 97.9 F Pulse Rate 73 Respiratory 14 Rate Blood Pressure 141/88 Blood Pressure [Left] O2 Sat by Pulse 98 Oximetry - General physical appearance no distress, no pain, other (Resting comfortably) - Respiratory normal expansion, normal respiratory effort - Abdomen soft, not tender, not distended Hernia: inguinal (Soft right inguinal hernia. Nontender. No skin changes.) - Integumentary no rash, no growths, no abnormal pigmentation - Psychiatric oriented to time, oriented to person, oriented to place, speech is normal, memory intact - Labs 04/16/19 12:32 04/16/19 12:32 Diabetes panel 04/16/19 Range/Units 12:32 Sodium 138 (137-145) mmol/L Potassium 3.8 (3.6-5.0) mmol/L Chloride 99.8 (98-107) mmol/L Carbon Dioxide 22 (22-30) mmol/L BUN 15 (9-20) mg/dL Creatinine 0.9 (0.8-1.5) mg/dL Glucose 129 H (75-100) mg/dL Calcium 9.5 (8.4-10.2) mg/dL AST 16 (5-40) units/L ALT 12 (7-56) units/L Alkaline Phosphatase 108 (35-129) units/L Total Protein 7.4 (6.3-8.2) g/dL Albumin 4.3 (3.9-5) g/dL Calcium panel 04/16/19 Range/Units 12:32 Calcium 9.5 (8.4-10.2) mg/dL Albumin 4.3 (3.9-5) g/dL Pituitary panel 04/16/19 Range/Units 12:32 Sodium 138 (137-145) mmol/L Potassium 3.8 (3.6-5.0) mmol/L Chloride 99.8 (98-107) mmol/L Carbon Dioxide 22 (22-30) mmol/L BUN 15 (9-20) mg/dL Creatinine 0.9 (0.8-1.5) mg/dL Glucose 129 H (75-100) mg/dL Calcium 9.5 (8.4-10.2) mg/dL Adrenal panel 04/16/19 Range/Units 12:32 Sodium 138 (137-145) mmol/L Potassium 3.8 (3.6-5.0) mmol/L Chloride 99.8 (98-107) mmol/L Carbon Dioxide 22 (22-30) mmol/L BUN 15 (9-20) mg/dL Creatinine 0.9 (0.8-1.5) mg/dL Glucose 129 H (75-100) mg/dL Calcium 9.5 (8.4-10.2) mg/dL Total Bilirubin 0.70 (0.1-1.2) mg/dL AST 16 (5-40) units/L ALT 12 (7-56) units/L Alkaline Phosphatase 108 (35-129) units/L Total Protein 7.4 (6.3-8.2) g/dL Albumin 4.3 (3.9-5) g/dL
[2019-04-17] MEDS ORDERED: hydrALAZINE 20 MG/1 ML INJ IV PRN (21:43)
[2019-04-18 10:31] LABS: Hematocrit 43.1 % (35.5-45.6); Hemoglobin 14.6 gm/dl (11.8-15.2); Mean Corpuscular HGB Conc 34 % (32-34); Mean Corpuscular Volume 88 fl (84-94); Platelet Count 211 K/mm3 (140-440); Red Blood Count 4.88 M/mm3 (3.65-5.03); Red Cell Distribution Width 13.5 % (13.2-15.2)
[2019-04-18] MEDS: D5W/0.45% NACL 1,000 ML IV SCH (10:50)
[2019-04-18 10:53] LABS: BUN/Creatinine Ratio 7; Blood Urea Nitrogen 5 mg/dL (9-20); Calcium 8.3 mg/dL (8.4-10.2); Hemolysis Index 3
[2019-04-18] MEDS ORDERED: ceFAZolin/STERILE WATER 2 GM/20 ML SYRINGE IV NR (13:00)
[2019-04-18] MEDS ORDERED: LACTATED RINGERS 1,000 ML IV SCH (13:00)
[2019-04-18] MEDS ORDERED: GABAPENTIN 300 MG CAP PO NR (13:12)
[2019-04-18] MEDS ORDERED: CELECOXIB 200 MG CAP PO NR (13:12)
[2019-04-18] MEDS ORDERED: MIDAZOLAM 2 MG/2 ML INJ IV NR (13:13)
[2019-04-18] MEDS ORDERED: fentaNYL 100 MCG/2 ML INJ IV SCH (13:13)
[2019-04-18] MEDS ORDERED: FAMOTIDINE 20 MG/2 ML INJ IV NR (13:15)
[2019-04-18] MEDS ORDERED: BUPIVACAINE-EPINEPHRINE/PF 0.5%-1:200,000 (30 ML) VIAL INFILTRATI ONE ×2 (13:34→13:35)
[2019-04-18] MEDS ORDERED: BUPIVACAINE-EPINEPHRINE/PF 0.5%-1:200,000 (10 ML) VIAL INFILTRATI ONE (13:34)
[2019-04-18] MEDS ORDERED: LIDOCAINE (1%) 10 MG/1 ML VIAL 20 ML MDV ONE (13:35)
[2019-04-18] MEDS ORDERED: HYDROmorphone 1 MG/1 ML INJ ONE (14:12)
[2019-04-18] MEDS ORDERED: propofoL 200 MG/20 ML VIAL IV ONE (14:12)
[2019-04-18] MEDS ORDERED: LIDOCAINE MPF (2%) 20 MG/1 ML VIAL 5 ML ONE (14:12)
[2019-04-18] MEDS ORDERED: WATER FOR IRRIG STERILE 1,500 ML BOTTLE IR ONE (15:54)
[2019-04-18] MEDS ORDERED: ROCURONIUM 50 MG/5 ML INJ IV ONE ×2 (16:02)
[2019-04-18] MEDS ORDERED: dexAMETHasone 20 MG/5 ML VIAL ONE (16:03)
[2019-04-18] MEDS ORDERED: ONDANSETRON 4 MG/2 ML INJ ONE (16:03)
[2019-04-18] MEDS ORDERED: HYDROmorphone 1 MG/1 ML INJ IV PRN (16:05)
--- NOTE | 2019-04-18 16:05 | Anesthesia Consultation ---
Anesthesia Consult and Med Hx Date of service: 04/18/19 - Airway Anesthetic Teeth Evaluation: Poor, Chipped ROM Head & Neck: Inadequate Mental/Hyoid Distance: Adequate Mallampati Class: Class III Intubation Access Assessment: Possibly Difficult - Pulmonary Exam CTA: Yes - Cardiac Exam Cardiac Exam: RRR - Pre-Operative Health Status ASA Pre-Surgery Classification: ASA3, Emergency Proposed Anesthetic Plan: General - Pulmonary Hx Respiratory Symptoms: No - Cardiovascular System Hx Hypertension: Yes Hx Heart Attack/AMI: No Hx Percutaneous Transluminal Coronary Angioplasty (PTCA): No Hx Cardia Arrhythmia: No Hx Peripheral Vascular Disease: Yes - Central Nervous System CVA: No - Gastrointestinal Hx Ulcer: Yes (PUD) Hx Gastroesophageal Reflux Disease: No - Endocrine Hx Renal Disease: No Hx Liver Disease: No Hx Insulin Dependent Diabetes: No Hx Non-Insulin Dependent Diabetes: No Hx Thyroid Disease: No - Hematic Hx Anemia: No - Other Systems Hx Obesity: No - Additional Comments Anesthesia Medical History Comments: Large inguinal hernia with incarcerated bowel (reduced this admission).
--- NOTE | 2019-04-18 16:05 | Anesthesia Day of Surgery ---
Anesthesia Day of Surgery - Day of Surgery Patient Examined: Yes Patient H&P Reviewed: Yes Patient is NPO: Yes
[2019-04-18] MEDS ORDERED: LACTATED RINGERS 1,000 ML ONE (16:55)
[2019-04-18] MEDS ORDERED: NEOSTIGMINE 10MG/10 ML INJ MDV ONE (17:59)
[2019-04-18] MEDS ORDERED: GLYCOPYRROLATE 0.4 MG/2 ML INJ ONE (18:00)
[2019-04-18] MEDS ORDERED: HYDROcodone/ACETAMINOPHEN 5-325 MG TAB PO PRN (18:02)
--- NOTE | 2019-04-18 18:09 | Post Operative Note ---
Date of procedure: 04/18/19 (dictation:[id number]) Pre-op diagnosis: incarcerated RIH Post-op diagnosis: other (above. umbilical hernia) Findings: colon and small bowel incarcerated in RIH. No evidence of bowel compromise. Large indirect IH Procedure: Robotic assisted lap RIH repair Umbilical hernia repair IVF 2100cc EBL ~50cc UOP 200cc Anesthesia: GETA Surgeon: TRISTEN MCKEE (Asst: Amanda Rowell) Estimated blood loss: 50-100ml Pathology: none Condition: stable Disposition: PACU
--- NOTE | 2019-04-18 18:52 | Progress Note ---
Assessment and Plan Assessment and plan: --Large right inguinal hernia[ containing small and large bowel] with bowel obstruction, on CT abdomen Surgery evaluated the patient, Able to reduce, planning robotic surgery today Patient n.p.o. from midnight --History of recurrent right inguinal hernia with obstruction; Management per surgery, robotic surgery tomorrow --DVT prophylaxis; SCDs No pharmacologic anticoagulation in view of pending surgical procedure Plan of care reviewed with the patient and his nurse Disposition; follow surgery, postop management And discharge when medically stable History Interval history: Patient seen and examined in his room this morning Medications, and patient's chart reviewed Scheduled for hernia repair per surgery today Patient is n.p.o. status No new complaints Vital signs noted Hospitalist Physical - Constitutional Vitals: Temp Pulse Resp BP Pulse Ox 98.7 F 85 14 131/84 97 04/18/19 18:14 04/18/19 18:45 04/18/19 18:45 04/18/19 18:45 04/18/19 18:45 General appearance: Present: no acute distress, well-nourished - EENT Eyes: Present: PERRL, EOM intact - Neck Neck: Present: supple, normal ROM - Respiratory Respiratory effort: normal Respiratory: bilateral: diminished, negative: rales, rhonchi, wheezing - Cardiovascular Rhythm: regular Heart Sounds: Present: S1 & S2 - Extremities Extremities: no ischemia, No edema - Abdominal General gastrointestinal: soft, non-tender, non-distended, normal bowel sounds, other (Large right-sided inguinal hernia) - Integumentary Integumentary: Present: clear, warm - Psychiatric Psychiatric: appropriate mood/affect, cooperative - Neurologic Neurologic: CNII-XII intact, moves all extremities Results - Labs CBC & Chem 7: 04/18/19 09:37 04/18/19 09:37 Labs: Laboratory Last Values WBC 4.7 K/mm3 (4.5-11.0) 04/18/19 09:37 RBC 4.88 M/mm3 (3.65-5.03) 04/18/19 09:37 Hgb 14.6 gm/dl (11.8-15.2) 04/18/19 09:37 Hct 43.1 % (35.5-45.6) D 04/18/19 09:37 MCV 88 fl (84-94) 04/18/19 09:37 MCH 30 pg (28-32) 04/18/19 09:37 MCHC 34 % (32-34) 04/18/19 09:37 RDW 13.5 % (13.2-15.2) 04/18/19 09:37 Plt Count 211 K/mm3 (140-440) 04/18/19 09:37 Lymph % (Auto) 12.2 % (13.4-35.0) L 04/16/19 12:32 [place] % (Auto) 12.9 % (0.0-7.3) H 04/16/19 12:32 Eos % (Auto) 0.5 % (0.0-4.3) 04/16/19 12:32 Baso % (Auto) 0.3 % (0.0-1.8) 04/16/19 12:32 Lymph # 0.8 K/mm3 (1.2-5.4) L 04/16/19 12:32 [place] # 0.8 K/mm3 (0.0-0.8) 04/16/19 12:32 Eos # 0.0 K/mm3 (0.0-0.4) 04/16/19 12:32 Baso # 0.0 K/mm3 (0.0-0.1) 04/16/19 12:32 Seg Neutrophils % 74.1 % (40.0-70.0) H 04/16/19 12:32 Seg Neutrophils # 4.7 K/mm3 (1.8-7.7) 04/16/19 12:32 PT 14.8 Sec. (12.2-14.9) 04/16/19 18:29 INR 1.14 (0.87-1.13) H 04/16/19 18:29 APTT 29.3 Sec. (24.2-36.6) 04/16/19 18:29 Sodium 142 mmol/L (137-145) 04/18/19 09:37 Potassium 3.3 mmol/L (3.6-5.0) L 04/18/19 09:37 Chloride 105.1 mmol/L (98-107) 04/18/19 09:37 Carbon Dioxide 22 mmol/L (22-30) 04/18/19 09:37 Anion Gap 18 mmol/L 04/18/19 09:37 BUN 5 mg/dL (9-20) L 04/18/19 09:37 Creatinine 0.7 mg/dL (0.8-1.5) L 04/18/19 09:37 Estimated GFR > 60 ml/min 04/18/19 09:37 BUN/Creatinine Ratio 7 % 04/18/19 09:37 Glucose 89 mg/dL (75-100) 04/18/19 09:37 Lactic Acid 0.60 mmol/L (0.7-2.0) L 04/16/19 18:29 Calcium 8.3 mg/dL (8.4-10.2) L 04/18/19 09:37 Total Bilirubin 0.70 mg/dL (0.1-1.2) 04/16/19 12:32 AST 16 units/L (5-40) 04/16/19 12:32 ALT 12 units/L (7-56) 04/16/19 12:32 Alkaline Phosphatase 108 units/L (35-129) 04/16/19 12:32 Total Protein 7.4 g/dL (6.3-8.2) 04/16/19 12:32 Albumin 4.3 g/dL (3.9-5) 04/16/19 12:32 Albumin/Globulin Ratio 1.4 % 04/16/19 12:32 Lipase 18 units/L (13-60) 04/16/19 12:32 Urine Color Yellow (Yellow) 04/16/19 18:33 Urine Turbidity Clear (Clear) 04/16/19 18:33 Urine pH 5.0 (5.0-7.0) 04/16/19 18:33 Ur Specific [place] 1.060 (1.003-1.030) H 04/16/19 18:33 Urine Protein <15 mg/dl mg/dL (Negative) 04/16/19 18:33 Urine Glucose (UA) Neg mg/dL (Negative) 04/16/19 18:33 Urine Ketones Tr mg/dL (Negative) 04/16/19 18:33 Urine Blood Mod (Negative) 04/16/19 18:33 Urine Nitrite Neg (Negative) 04/16/19 18:33 Urine Bilirubin Neg (Negative) 04/16/19 18:33 Urine Urobilinogen < 2.0 mg/dL (<2.0) 04/16/19 18:33 Ur Leukocyte Esterase Neg (Negative) 04/16/19 18:33 Urine WBC (Auto) 1.0 /HPF (0.0-6.0) 04/16/19 18:33 Urine RBC (Auto) 2.0 /HPF (0.0-6.0) 04/16/19 18:33 U Epithel Cells (Auto) 1.0 /HPF (0-13.0) 04/16/19 18:33 Urine Mucus Few /HPF 04/16/19 18:33 Blood Type A POSITIVE 04/18/19 09:37 Antibody Screen Negative 04/18/19 09:37 Active Medications - Current Medications Current Medications: Generic Name Dose Route Start Last Admin Trade Name Freq PRN Reason Stop Dose Admin Acetaminophen 650 mg 04/16/19 22:03 Tylenol MO Q4H PRN Fever >101 Acetaminophen/Hydrocodone Bitart 2 each 04/18/19 18:02 [place] 5/325 PO Q6H PRN Pain, Moderate (4-6) Hydralazine HCl 5 mg 04/17/19 21:43 Apresoline IV Q6HR PRN HIGH BLOOD PRESSURE Hydromorphone HCl 1 mg 04/16/19 22:01 Dilaudid IV Q4H PRN Pain , Severe (7-10) Hydromorphone HCl 0.5 mg 04/18/19 16:05 Dilaudid IV 04/18/19 22:00 Q10MIN PRN Pain , Severe (7-10) Dextrose/Sodium Chloride 1,000 mls @ 75 mls/hr 04/16/19 22:00 04/18/19 10:50 D5/0.45ns IV 04/18/19 22:00 75 mls/hr DIRECT TERESA Administration Lactated Ringer's 1,000 mls @ 100 mls/hr 04/18/19 13:00 04/18/19 13:00 Lactated Ringers IV 04/18/19 19:00 100 mls/hr DIRECT TERESA Administration Midazolam HCl 2 mg 04/18/19 13:13 04/18/19 13:51 Versed IV 04/18/19 23:59 2 mg PREOP NR Administration Ondansetron HCl 4 mg 04/16/19 22:02 Zofran IV Q4H PRN Nausea And Vomiting
--- NOTE | 2019-04-18 18:57 | Progress Note ---
History Interval history: --Large right inguinal hernia[ containing small and large bowel Small bowel] with bowel obstruction, on CT abdomen Surgery evaluated the patient, Able to reduce, planning robotic surgery today Patient is iron is not working I am so stressed out I have so much n.p.o. from midnight --History of recurrent right inguinal hernia with obstruction; Management per surgery, robotic surgery tomorrow --DVT prophylaxis; SCDs No pharmacologic anticoagulation in view of pending surgical procedure Saran of care reviewed with the patient and his nurse Disposition; follow surgery, postop management And discharge when medically stable Hospitalist Physical - Constitutional Vitals: Temp Pulse Resp BP Pulse Ox 98.7 F 85 14 131/84 97 04/18/19 18:14 04/18/19 18:45 04/18/19 18:45 04/18/19 18:45 04/18/19 18:45 General appearance: Present: no acute distress, well-nourished - EENT Eyes: Present: PERRL, EOM intact - Neck Neck: Present: supple, normal ROM - Respiratory Respiratory effort: normal Respiratory: bilateral: diminished, negative: rales, rhonchi, wheezing - Cardiovascular Rhythm: regular Heart Sounds: Present: S1 & S2 - Extremities Extremities: no ischemia, No edema - Abdominal General gastrointestinal: soft, non-tender, non-distended, normal bowel sounds - Integumentary Integumentary: Present: clear, warm - Psychiatric Psychiatric: appropriate mood/affect, cooperative - Neurologic Neurologic: moves all extremities Results - Labs CBC & Chem 7: 04/18/19 09:37 04/18/19 09:37 Labs: Laboratory Last Values WBC 4.7 K/mm3 (4.5-11.0) 04/18/19 09:37 RBC 4.88 M/mm3 (3.65-5.03) 04/18/19 09:37 Hgb 14.6 gm/dl (11.8-15.2) 04/18/19 09:37 Hct 43.1 % (35.5-45.6) D 04/18/19 09:37 MCV 88 fl (84-94) 04/18/19 09:37 MCH 30 pg (28-32) 04/18/19 09:37 MCHC 34 % (32-34) 04/18/19 09:37 RDW 13.5 % (13.2-15.2) 04/18/19 09:37 Plt Count 211 K/mm3 (140-440) 04/18/19 09:37 Lymph % (Auto) 12.2 % (13.4-35.0) L 04/16/19 12:32 Rice % (Auto) 12.9 % (0.0-7.3) H 04/16/19 12:32 Eos % (Auto) 0.5 % (0.0-4.3) 04/16/19 12:32 Baso % (Auto) 0.3 % (0.0-1.8) 04/16/19 12:32 Lymph # 0.8 K/mm3 (1.2-5.4) L 04/16/19 12:32 Rice # 0.8 K/mm3 (0.0-0.8) 04/16/19 12:32 Eos # 0.0 K/mm3 (0.0-0.4) 04/16/19 12:32 Baso # 0.0 K/mm3 (0.0-0.1) 04/16/19 12:32 Seg Neutrophils % 74.1 % (40.0-70.0) H 04/16/19 12:32 Seg Neutrophils # 4.7 K/mm3 (1.8-7.7) 04/16/19 12:32 PT 14.8 Sec. (12.2-14.9) 04/16/19 18:29 INR 1.14 (0.87-1.13) H 04/16/19 18:29 APTT 29.3 Sec. (24.2-36.6) 04/16/19 18:29 Sodium 142 mmol/L (137-145) 04/18/19 09:37 Potassium 3.3 mmol/L (3.6-5.0) L 04/18/19 09:37 Chloride 105.1 mmol/L (98-107) 04/18/19 09:37 Carbon Dioxide 22 mmol/L (22-30) 04/18/19 09:37 Anion Gap 18 mmol/L 04/18/19 09:37 BUN 5 mg/dL (9-20) L 04/18/19 09:37 Creatinine 0.7 mg/dL (0.8-1.5) L 04/18/19 09:37 Estimated GFR > 60 ml/min 04/18/19 09:37 BUN/Creatinine Ratio 7 % 04/18/19 09:37 Glucose 89 mg/dL (75-100) 04/18/19 09:37 Lactic Acid 0.60 mmol/L (0.7-2.0) L 04/16/19 18:29 Calcium 8.3 mg/dL (8.4-10.2) L 04/18/19 09:37 Total Bilirubin 0.70 mg/dL (0.1-1.2) 04/16/19 12:32 AST 16 units/L (5-40) 04/16/19 12:32 ALT 12 units/L (7-56) 04/16/19 12:32 Alkaline Phosphatase 108 units/L (35-129) 04/16/19 12:32 Total Protein 7.4 g/dL (6.3-8.2) 04/16/19 12:32 Albumin 4.3 g/dL (3.9-5) 04/16/19 12:32 Albumin/Globulin Ratio 1.4 % 04/16/19 12:32 Lipase 18 units/L (13-60) 04/16/19 12:32 Urine Color Yellow (Yellow) 04/16/19 18:33 Urine Turbidity Clear (Clear) 04/16/19 18:33 Urine pH 5.0 (5.0-7.0) 04/16/19 18:33 Ur Specific [place] 1.060 (1.003-1.030) H 04/16/19 18:33 Urine Protein <15 mg/dl mg/dL (Negative) 04/16/19 18:33 Urine Glucose (UA) Neg mg/dL (Negative) 04/16/19 18:33 Urine Ketones Tr mg/dL (Negative) 04/16/19 18:33 Urine Blood Mod (Negative) 04/16/19 18:33 Urine Nitrite Neg (Negative) 04/16/19 18:33 Urine Bilirubin Neg (Negative) 04/16/19 18:33 Urine Urobilinogen < 2.0 mg/dL (<2.0) 04/16/19 18:33 Ur Leukocyte Esterase Neg (Negative) 04/16/19 18:33 Urine WBC (Auto) 1.0 /HPF (0.0-6.0) 04/16/19 18:33 Urine RBC (Auto) 2.0 /HPF (0.0-6.0) 04/16/19 18:33 U Epithel Cells (Auto) 1.0 /HPF (0-13.0) 04/16/19 18:33 Urine Mucus Few /HPF 04/16/19 18:33 Blood Type A POSITIVE 04/18/19 09:37 Antibody Screen Negative 04/18/19 09:37 Active Medications - Current Medications Current Medications: Generic Name Dose Route Start Last Admin Trade Name Freq PRN Reason Stop Dose Admin Acetaminophen 650 mg 04/16/19 22:03 Tylenol SD Q4H PRN Fever >101 Acetaminophen/Hydrocodone Bitart 2 each 04/18/19 18:02 Yawkey 5/325 PO Q6H PRN Pain, Moderate (4-6) Hydralazine HCl 5 mg 04/17/19 21:43 Apresoline IV Q6HR PRN HIGH BLOOD PRESSURE Hydromorphone HCl 1 mg 04/16/19 22:01 Dilaudid IV Q4H PRN Pain , Severe (7-10) Hydromorphone HCl 0.5 mg 04/18/19 16:05 Dilaudid IV 04/18/19 22:00 Q10MIN PRN Pain , Severe (7-10) Dextrose/Sodium Chloride 1,000 mls @ 75 mls/hr 04/16/19 22:00 04/18/19 10:50 D5/0.45ns IV 04/18/19 22:00 75 mls/hr DIRECT TERESA Administration Lactated Ringer's 1,000 mls @ 100 mls/hr 04/18/19 13:00 04/18/19 13:00 Lactated Ringers IV 04/18/19 19:00 100 mls/hr DIRECT TERESA Administration Midazolam HCl 2 mg 04/18/19 13:13 04/18/19 13:51 Versed IV 04/18/19 23:59 2 mg PREOP NR Administration Ondansetron HCl 4 mg 04/16/19 22:02 Zofran IV Q4H PRN Nausea And Vomiting
[2019-04-18] MEDS ORDERED: POTASSIUM CHLORIDE ER 20 MEQ TAB PO SCH (19:05)
--- NOTE | 2019-04-18 19:13 | Post Anesthesia Evaluation ---
- Post Anesthesia Evaluation Patient Participated: Yes Airway Patent: Yes Stable Respiratory Function: Yes Nausea/Vomiting: No Temp > 96.8F: Yes Pain Manageable: Yes Adequeate Hydration: Yes Anesthesia Complications: No
[2019-04-18] MEDS: KETOROLAC 30 MG/1 ML INJ IV SCH (21:51)
[2019-04-18] MEDS: GABAPENTIN 300 MG CAP PO SCH (21:59)
[2019-04-19] MEDS: KETOROLAC 30 MG/1 ML INJ IV SCH ×3 (00:32→12:19)
[2019-04-19 06:27] LABS: Basophils % (Auto) 0.6 % (0.0-1.8); Hemoglobin 14.3 gm/dl (11.8-15.2); Lymphocytes # (Auto) 1.1 K/mm3 (1.2-5.4); Lymphocytes % (Auto) 14.2 % (13.4-35.0); Mean Corpuscular HGB Conc 34 % (32-34); Mean Corpuscular Volume 89 fl (84-94); Monocytes # (Auto) 0.9 K/mm3 (0.0-0.8); Monocytes % (Auto) 11.1 % (0.0-7.3); Platelet Count 255 K/mm3 (140-440); Red Blood Count 4.75 M/mm3 (3.65-5.03); Red Cell Distribution Width 13.4 % (13.2-15.2)
[2019-04-19 07:13] VITALS: BP 124/77
--- NOTE | 2019-04-19 08:42 | Progress Note ---
Assessment and Plan - Patient Problems (1) Inguinal hernia with bowel obstruction Current Visit: Yes Status: Acute Plan to address problem: Pt stable. Status post robotic assisted laparoscopic right inguinal hernia repair and umbilical hernia repair. Postop day #1. Patient doing very well. He feels much better. Tolerated regular diet last night. Patient is ready for discharge to home. Recommendations: 1) may discharge home today from my standpoint 2) may shower today. Pat dry wounds 3) no heavy lifting or strenuous activity. Encourage daily walking 4) wear a well fitted briefs to minimize fluid accumulation in the scrotum. 5) diet as tolerated 6) follow-up in 2 weeks. Please instruct patient to call for an appointment. 7) should only require ibuprofen and hydrocodone for pain control. Please call with any questions. Subjective Date of service: 04/19/19 Patient Reports: Positive: no new complaints, feels better, tolerating a regular diet. Negative: nausea, vomiting Objective Vital Signs - 12hr 04/18/19 04/19/19 04/19/19 23:16 06:02 07:28 Temperature 98.6 F 98.7 F Pulse Rate 93 H Respiratory 20 18 Rate Blood Pressure 117/79 124/77 O2 Sat by Pulse 91 94 Oximetry - General physical appearance no distress, no pain - Respiratory normal expansion, normal respiratory effort - Abdomen soft, not tender, not distended, not guarding, not rigid, surgical scars (C/d/I) - Integumentary no rash, no growths, no abnormal pigmentation - Psychiatric oriented to time, oriented to person, oriented to place, speech is normal, memory intact - Labs 04/19/19 06:10 04/19/19 06:10 Diabetes panel 04/18/19 04/19/19 Range/Units 09:37 06:10 Sodium 142 (137-145) mmol/L Potassium 3.3 L 4.0 D (3.6-5.0) mmol/L Chloride 105.1 (98-107) mmol/L Carbon Dioxide 22 (22-30) mmol/L BUN 5 L (9-20) mg/dL Creatinine 0.7 L (0.8-1.5) mg/dL Glucose 89 (75-100) mg/dL Calcium 8.3 L (8.4-10.2) mg/dL Calcium panel 02/17/20 Range/Units 09:37 Calcium 8.3 L (8.4-10.2) mg/dL Pituitary panel 04/18/19 04/19/19 Range/Units 09:37 06:10 Sodium 142 (137-145) mmol/L Potassium 3.3 L 4.0 D (3.6-5.0) mmol/L Chloride 105.1 (98-107) mmol/L Carbon Dioxide 22 (22-30) mmol/L BUN 5 L (9-20) mg/dL Creatinine 0.7 L (0.8-1.5) mg/dL Glucose 89 (75-100) mg/dL Calcium 8.3 L (8.4-10.2) mg/dL Adrenal panel 04/18/19 04/19/19 Range/Units 09:37 06:10 Sodium 142 (137-145) mmol/L Potassium 3.3 L 4.0 D (3.6-5.0) mmol/L Chloride 105.1 (98-107) mmol/L Carbon Dioxide 22 (22-30) mmol/L BUN 5 L (9-20) mg/dL Creatinine 0.7 L (0.8-1.5) mg/dL Glucose 89 (75-100) mg/dL Calcium 8.3 L (8.4-10.2) mg/dL
[2019-04-19] MEDS: GABAPENTIN 300 MG CAP PO SCH (09:38)
--- NOTE | 2019-04-19 16:12 | Discharge Summary ---
Providers - Providers Date of Admission: 04/16/19 21:11 Date of discharge: 04/19/19 Attending physician: MARII MURPHY Primary care physician: CROCHETER HAND Hospitalization Condition: Critical Hospital course: Discharge diagnosis: --Large right inguinal hernia[ containing small and large bowel] with bowel obstruction, on CT abdomen Surgery evaluated the patient, Patient underwent robotic assisted lap right inguinal hernia repair And umbilical hernia repair. Patient tolerated the procedure well, Postop care per surgery placed on diet and was discharged home with outpt f/u --History of recurrent right inguinal hernia with obstruction; Management per surgery, robotic surgery tomorrow --DVT prophylaxis; SCDs No pharmacologic anticoagulation in view of pending surgical procedure Disposition; home with self care Disposition: DC-01 TO HOME OR SELFCARE Time spent for discharge: 34 minutes Core Measure Documentation - Palliative Care Palliative Care/ Comfort Measures: Not Applicable - Core Measures Any of the following diagnoses?: none Exam - Constitutional Vitals: Temp Pulse Resp BP Pulse Ox 98.7 F 93 H 18 124/77 94 04/19/19 06:02 04/19/19 06:02 04/19/19 06:02 04/19/19 06:02 04/19/19 07:28 General appearance: Present: no acute distress, well-nourished - EENT Eyes: Present: PERRL ENT: hearing intact, clear oral mucosa - Neck Neck: Present: supple, normal ROM - Respiratory Respiratory effort: normal Respiratory: bilateral: CTA - Cardiovascular Heart Sounds: Present: S1 & S2. Absent: rub, click - Extremities Extremities: pulses symmetrical, No edema Peripheral Pulses: within normal limits - Abdominal General gastrointestinal: Present: soft, non-distended, normal bowel sounds - Integumentary Integumentary: Present: clear, warm, dry - Musculoskeletal Musculoskeletal: gait normal, strength equal bilaterally - Psychiatric Psychiatric: appropriate mood/affect, intact judgment & insight - Neurologic Neurologic: CNII-XII intact, moves all extremities Plan Activity: advance as tolerated Weight Bearing Status: Non-Weight Bearing Diet: low fat, low salt Wound: per your surgeon's advice Follow up with: RON CASPER MD [Primary Care Provider] - 7 Days TRISTEN MCKEE MD [Staff Physician] - 7 Days Prescriptions: Docusate Sodium [Colace] 100 mg PO BID #30 capsule oxyCODONE /ACETAMINOPHEN [Percocet 5/325] 1 tab PO Q6HR PRN #14 tablet PRN Reason: Pain
--- NOTE | 2019-04-19 18:16 | Operative Report ---
PREOPERATIVE DIAGNOSIS: Incarcerated right inguinal hernia with obstruction. POSTOPERATIVE DIAGNOSES: 1. Incarcerated right inguinal hernia with obstruction. 2. Umbilical hernia. PROCEDURE: 1. Robotic-assisted laparoscopic right inguinal hernia repair. 2. Umbilical hernia repair. ATTENDING PHYSICIAN: Reynaldo Dyer M.D. LAND DEVELOPER: Amanda Rowell ANESTHESIA: General. ESTIMATED BLOOD LOSS: Approximately 50 mL. FLUIDS: 2100 mL. URINE OUTPUT: 200 mL. FINDINGS: The patient had a large incarcerated right inguinal hernia with colon and small bowel. There was no evidence of any bowel compromise, very large indirect inguinal hernia defect was identified. It was approximately 3-3.5 cm in diameter. The patient was also noted to have a 1.5 cm umbilical hernia that was easily reducible. IMPLANTS: Bard 3DMax large right mesh. DRAINS: None. DISPOSITION: Stable, transferred to Recovery Room. INDICATIONS: This is a 58-year-old male who presented to the hospital with bowel obstruction secondary to a chronic right inguinal hernia that was very large on CT scan. Colon and small bowel can be seen in the hernia sac. Partial reduction was able to be done in the Emergency Department to allow the patient to be resuscitated and stabilized prior to surgery. The patient was admitted to the hospital. The patient was assessed to be need for complete reduction of hernia and repair of hernia via robotic technique. Procedure, risks, benefits were explained to the patient. Risks included but were not limited to infection, bleeding, pain, injury to surrounding structures, possible need for open surgery, possible need for further procedures in the future, possible recurrence. The patient understood and consented. OPERATIVE NOTE: The patient was brought to the operating room and placed on the table in supine position. After adequate general anesthesia was established, the patient was prepped and draped in usual sterile fashion. Arms were tucked at the side, pressure points were padded, SCDs were in place. Montano catheter was placed. Timeout was called. We began by placing a Veress needle in left upper quadrant at Mistry's point. I was able to insufflate in the first attempt. We then replaced this with a 5 mm port using the Optiview technique. We entered the peritoneal cavity safely. There was no injury to the underlying structures. We examined the abdominal cavity. No adhesions were identified. A large incarcerated hernia was seen at the right inguinal hernia location. Two more ports were inserted approximately 10 cm away from the umbilicus as well as an umbilical port was placed. I placed the umbilical port such that it would go through the hernia defect and we could close it at the end. A 12 mm port was placed in the umbilicus, two 8 mm ports were placed on either side 10 cm away. We then replaced the 5 mm port with an 8. I began by attempting to reduce the contents with a combination of gentle traction on the inside and compression on the outside. I was able to eventually manipulate all the tissue back into the abdominal cavity. It was difficult; however, we were able to do it safely without injuring the bowel or the associated mesentery. There was no bleeding, no tearing of the bowel, everything looked very good at the end. Bowel was completely viable. There were no areas that were bruised or appeared compromised in any way. Once the contents were completely reduced, we then placed the patient in steep Trendelenburg and flexed the table. Robot was docked. I proceeded to the console. I began by creating a peritoneal flap. We took down the peritoneum. I wanted to place a very large mesh so I extended my dissection past the pubic symphysis to the left side so that we have a very wide area and I took it far lateral. We dissected the peritoneum until we were at the sac. We reduced a fair amount of sac and I was eventually able to dissect the sac away from the cord structures. Once we could clearly see the cord structures and we were underneath and had the sac elevated above, I then divided the sac as I had spent a fair amount of time trying to get the sac out; however, the sac was so large and densely adherent, I did not think it will be worthwhile to spend all that time and potentially a lot of trauma and bleeding from dissecting out the whole sac. Therefore, I dissected out as much as I thought I could safely do and then I divided the sac under direct vision, we could clearly see the underlying structures. I made sure there were no contents as I could see from the other side of the peritoneum and it was completely empty. We divided the sac completely and then I dissected the peritoneum all the way back to the medial umbilical ligament junction where it meets the vas deferens. I did a very large dissection, I was very pleased with excellent hemostasis. I then placed the mesh, we secured it to the pubic symphysis and then I took that same 2-0 V-Loc suture and continued around the upper periphery of the superior edge of the mesh to secure it in place. It laid very nicely. I used a 3-0 V-Loc suture to close the defect in the peritoneum that was left after I divided the hernia sac and then I used another 3-0 V-Loc stitch to close the peritoneal flap. Everything looked very good at the end. I checked the bowel again. Everything was completely viable. There was not any area that was questionable and of course there was nothing still herniating out the sac, everything had been completely reduced. I did not find any other defects in the peritoneum for a potential hernia, I may have meshed everything, looked good. We then transitioned back to laparoscopically so I removed the needles and gauze that had been inserted. All counts were all correct at this point. We closed the umbilical hernia using the Silvino-Srinath fascial closure device. Abdomen was desufflated. I tried to decompress the scrotum that was full of hair now and massively distended, we got some air out. Unfortunately, I had already closed the peritoneum, there was not the large hole through which the air could be decompressed. We then removed all the ports. No further local had been injected. The patient received a TAP block at the beginning of the case. Skin was closed with 4-0 Monocryl subcuticular stitches. Skin was cleaned and dried. Dermabond was placed. The patient tolerated the procedure well. There were no complications. All counts were correct at the end of the case. JOB# [id number] DESIRE/DILAN
== END 2019-04-19 15:09 | disposition home or self-care (01) | DRG 351 ==
LOC: ED 11:29 → 3A 21:11
PROVIDERS: ADMIT Internal Medicine; ATTEND Internal Medicine
PROC: 0YU50JZ Supplement Right Inguinal Region with Synthetic Substitute, Open Approach (ICD-10-PCS; principal; 2019-04-18)
PROC: 0YJ54ZZ Inspection of Right Inguinal Region, Percutaneous Endoscopic Approach (ICD-10-PCS; 2019-04-18)
PROC: 0WQF0ZZ Repair Abdominal Wall, Open Approach (ICD-10-PCS; 2019-04-18)
PROC: 8E0W0CZ Robotic Assisted Procedure of Trunk Region, Open Approach (ICD-10-PCS; 2019-04-18)
DX: K42.9 Umbilical hernia without obstruction or gangrene (principal); K40.30 Unilateral inguinal hernia, with obstruction, without gangrene, not specified as recurrent; I10 Essential (primary) hypertension; I73.9 Peripheral vascular disease, unspecified; Z87.442 Personal history of urinary calculi
CPT/HCPCS: 36415; 64450; 74177; 80048; 80053; 81001; 82140; 83690; 84132; 85025; 85027; 85610; 85730; 86850; 86900; 86901; G0378; C1781; C9113; J0690; J1100; J1170; J1885; J2250; J2405; J2704; J2710; J3010; J7030; J7120; Q9967

== ENCOUNTER 2021-04-03 04:36 | Emergency (ER) | payer MEDICAID ==
[2021-04-03] MEDS ORDERED: IBUPROFEN 600 MG TAB PO ONE (05:06)
[2021-04-03] MEDS ORDERED: GABAPENTIN 300 MG CAP PO ONE (05:07)
--- NOTE | 2021-04-03 05:51 | Event Note ---
ED Screening Note Date of service: 04/03/21 Time: 05:50 ED Screening Note: Patient is a 60-year-old male with history of chronic peripheral neuropathy and recurrent cellulitis presents to the ED with complaint of acute onset persistent bilateral lower extremity pain, specifically lower leg pain with mild erythematous macular scaly rashes for the last 1 week, worse in the last 2 days. Patient also complains of bilateral ankle and foot pain. Patient denies fall, traumatic injury, fever, chills, nausea, vomiting, chest pain or shortness of breath. This initial assessment/diagnostic orders/clinical plan/treatment(s) is/are subject to change based on patients health status, clinical progression and re- assessment by fellow clinical providers in the ED. Further treatment and workup at subsequent clinical providers discretion. Patient/guardian urged not to elope from the ED as their condition may be serious if not clinically assessed and managed. Initial orders include: CBC, CMP,
[2021-04-03 06:00] LABS: Basophils # (Auto) 0.1 K/mm3 (0.0-0.1); Basophils % (Auto) 1.1 % (0.0-1.8); Eosinophils # (Auto) 0.2 K/mm3 (0.0-0.4); Eosinophils % (Auto) 1.9 % (0.0-4.3); Hematocrit 49.4 % (35.5-45.6); Lymphocytes # (Auto) 1.7 K/mm3 (1.2-5.4); Lymphocytes % (Auto) 18.1 % (13.4-35.0); Mean Corpuscular HGB Conc 33 % (32-34); Mean Corpuscular Volume 89 fl (84-94); Monocytes # (Auto) 1.1 K/mm3 (0.0-0.8); Monocytes % (Auto) 11.8 % (0.0-7.3); Platelet Count 295 K/mm3 (140-440); Red Blood Count 5.57 M/mm3 (3.65-5.03); Red Cell Distribution Width 13.3 % (13.2-15.2)
[2021-04-03 06:21] LABS: Alanine Aminotransferase 26 units/L (7-56); Albumin 4.5 g/dL (3.9-5); BUN/Creatinine Ratio 26; Blood Urea Nitrogen 29 mg/dL (9-20); Calcium 9.4 mg/dL (8.4-10.2); Hemolysis Index 6
[2021-04-03] MEDS ORDERED: traMADol 50 MG TAB PO PRN (06:56)
--- NOTE | 2021-04-03 07:00 | Emergency Department Report ---
HPI - General Chief Complaint: Extremity Injury, Lower Time Seen by Provider: 04/03/21 06:46 - HPI HPI: MSE 6 The patient is a 60-year-old male present with a chief complaint of left lower extremity pain. The patient states for the past 2 days he has had pain to the distal portion of his left quispe. Patient states he has been discoloration as well. Patient denies history of recent trauma or fever. Patient has a history of injury in the left lower extremity requiring plates and screws in the past ED Past Medical Hx - Past Medical History Hx Hypertension: Yes Hx Kidney Stones: Yes Additional medical history: PVD - Surgical History Additional Surgical History: Left leg with titanium rods, plates and screws from Forklift accident, Hernia - Family History Family history: no significant - Social History Smoking Status: Former Smoker Substance Use Type: None (Denies illicit drug) - Medications Home Medications: Home Medications Medication Instructions Recorded Confirmed Last Taken Type Docusate Sodium [Colace] 100 mg PO BID #30 capsule 04/19/19 Unknown Rx oxyCODONE /ACETAMINOPHEN [Percocet 1 tab PO Q6HR PRN #14 tablet 04/19/19 Unknown Rx 5/325] traMADoL [Ultram] 50 mg PO Q6HR PRN #14 tablet 04/03/21 Unknown Rx ED Review of Systems ROS: Stated complaint: POOR CIRCULATION IN FEET Other details as noted in HPI Constitutional: no symptoms reported Eyes: denies: eye pain ENT: denies: throat pain Respiratory: no symptoms reported Cardiovascular: denies: chest pain Endocrine: no symptoms reported Gastrointestinal: denies: abdominal pain Genitourinary: denies: dysuria Musculoskeletal: myalgia Skin: change in color Neurological: denies: headache Physical Exam - Physical Exam Vital Signs: Vital Signs 04/03/21 04:39 Temperature 98.6 F Pulse Rate 97 H Respiratory 20 Rate Blood Pressure 142/104 [Right] O2 Sat by Pulse 97 Oximetry Physical Exam: GENERAL: The patient is well-developed well-nourished male sleeping in chair not appearing to be in acute distress. Easily awakened HEENT: Normocephalic. Atraumatic. Extraocular motions are intact. Patient has moist mucous membranes. NECK: Supple. Trachea midline CHEST/LUNGS: Clear to auscultation. There is no respiratory distress noted. HEART/CARDIOVASCULAR: Regular. There is no tachycardia. There is no gallop rub or murmur. Bounding left DP ABDOMEN: Abdomen is soft, nontender. Patient has normal bowel sounds. There is no abdominal distention. SKIN: There are chronic appearing skin changes to bilateral lower extremities. Scaly skin on the feet and lower legs with regions of purple discoloration. Foot is warm NEURO: The patient is awake, alert, and oriented. The patient is cooperative. The patient has no focal neurologic deficits. The patient has normal speech. GCS 15 MUSCULOSKELETAL: There is no evidence of acute injury. ED Course Vital Signs 04/03/21 04:39 Temperature 98.6 F Pulse Rate 97 H Respiratory 20 Rate Blood Pressure 142/104 [Right] O2 Sat by Pulse 97 Oximetry ED Medical Decision Making - Lab Data Result diagrams: 04/03/21 05:43 04/03/21 05:43 - Radiology Data Radiology results: report reviewed (Left lower extremity Doppler), image reviewed (Left lower extremity Doppler) [facility] [address] [place] [address] Vascular Lab Report Signed Patient: MOON DOMINIQUE MR#: [id number] : 1960 Acct:[id number] Age/Sex: 60 / M ADM Date: 04/03/21 Loc: ED Attending Dr: Ordering Physician: MOOSE SIMON MD Date of Service: 04/03/21 Procedure(s): VL venous duplex LE LT Accession Number(s): [id number] cc: MOOSE SIMON MD DUPLEX DOPPLER LOWER EXTREMITY VEINS, LEFT INDICATION: Pain. TECHNIQUE: Duplex doppler imaging was performed through the veins of the left lower extremity using venous compression and other maneuvers. COMPARISON: None available. FINDINGS: Common femoral vein: Negative. Superficial femoral vein: Negative. Popliteal vein: Negative. Calf veins: Negative. Additional findings: None. IMPRESSION: Negative for DVT. Signer Name: Barrington Magana MD Signed: 04/03/2021 10:43 AM Workstation Name: [id number] Transcribed By: ES Dictated By: Barrington Magana MD Electronically Authenticated By: Barrington Magana MD Signed Date/Time: 04/03/21 1043 DD/ 1042 TD/TT: Print Cancel - Differential Diagnosis Chronic skin changes, DVT, Critical care attestation.: If time is entered above; I have spent that time in minutes in the direct care of this critically ill patient, excluding procedure time. 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 Please follow-up with him for further evaluation) Time of Disposition: 10:57
--- NOTE | 2021-04-03 10:47 | Vascular Lab Report ---
DUPLEX DOPPLER LOWER EXTREMITY VEINS, LEFT INDICATION: Pain. TECHNIQUE: Duplex doppler imaging was performed through the veins of the left lower extremity using venous compr ession and other maneuvers. COMPARISON: None available. FINDINGS: Common femoral vein: Negative. Superficial femoral vein: Negative. Popliteal vein: Negative. Calf veins: Negative. Additional findings: None. IMPRESSION: Negative for DVT. Signer Name: Barrington Magana MD Signed: 04/03/2021 10:43 AM Workstation Name: [id number]
[2021-04-03 11:42] VITALS: BP 132/94
== END 2021-04-03 11:42 | disposition home or self-care (01) ==
LOC: ED 04:36
DX: M79.662 Pain in left lower leg (principal); I10 Essential (primary) hypertension; N20.0 Calculus of kidney; Z79.899 Other long term (current) drug therapy; Z98.890 Other specified postprocedural states; Z87.891 Personal history of nicotine dependence
CPT/HCPCS: 36415; 80053; 85025; 99284